=== PATIENT | female | born 1940 | race Caucasian/White ===

== ENCOUNTER 2022-02-25 08:26 | Observation (INO) | payer MEDICARE, OTHER ==
[2022-02-25] MEDS ORDERED: ANTIVERT 25 MG PO ONE (09:01)
[2022-02-25] MEDS ORDERED: Valium 5 MG PO ONE (09:01)
[2022-02-25] MEDS ORDERED: Valium 5 MG ONE (09:13)
[2022-02-25] MEDS ORDERED: ANTIVERT 25 MG ONE (09:13)
[2022-02-25 09:17] LABS: Absolute Neutrophil Ct (ANC) 3.07 x10^3/uL (1.4-6.9); Basophil (Absolute #) 0.03 x10^3/uL (0-0.4); Eosinophil % 1.8 % (0.00-5.0); Eosinophil (Absolute #) 0.09 x10^3/uL (0-0.5); Hematocrit 39.7 % (35-47); Hemoglobin 13.2 g/dL (12.0-16.0); Lymphocyte (Absolute #) 1.24 x10^3/uL (1.0-4.6); Lymphocytes % 25.4 % (24.0-44.0); Mean Cell Volume 92.1 fL (78-100); Mean Corpuscular Hemoglobin 30.6 pg (26-32); Mean Corpuscular Hgb Concent. 33.2 g/dL (32-36); Mean Platelet Volume 11.1 fL (7.5-11.0); Monocyte (Absolute #) 0.44 x10^3/uL (0.0-1.3); Neutrophil % 62.8 % (36.0-66.0); Platelet Count 229 x10^3/uL (150-450); Red Blood Count 4.31 x10^6/uL (4.1-5.4); Red Cell Distribution Width 12.7 % (11.5-14.0); White Blood Count 4.9 x10^3/uL (4.0-10.5)
[2022-02-25 09:30] LABS: ALKALINE PHOSPHATASE 98 U/L (38-126); ANION GAP 6.2 MEQ/L (5-15); BLOOD UREA NITROGEN 13 mg/dL (7-17); CHLORIDE 106 mmol/L (98-107); Calcium 8.7 mg/dL (8.4-10.2); Carbon Dioxide 30 mmol/L (22-30); Creatinine 1 0.59 mg/dL (0.52-1.04); EST GLOMERULAR FILTRATION RATE > 60.0 ML/MIN; Glucose 112 mg/dL (74-106); MAGNESIUM 2.1 mg/dL (1.6-2.3); Potassium 3.7 mmol/L (3.5-5.1); SGOT/AST 23 U/L (14-36); SGPT/ALT 16 U/L (0-35); SODIUM 138 mmol/L (137-145); Total Protein 6.6 g/dL (6.3-8.2)
[2022-02-25] MEDS: Sodium Chloride 0.9% 1000 ML 1,000 ML IV SCH ×2 (09:31→16:30)
--- NOTE | 2022-02-25 09:49 | XRAY ---
Indication: Vertigo and nausea. Low blood pressure. Multiple contiguous axial images obtained through the head without contrast. Comparison: None Age-appropriate global atrophy and minimal periventricular degenerative micro-ischemia. No acute intracranial hemorrhage, abnormal extra-axial fluid collection, or mass effect. Fourth ventricle is midline without hydrocephalus. Bony calvarium intact. Paranasal sinuses and mastoid air cells are clear. Impression: Nonacute senile brain.
--- NOTE | 2022-02-25 10:38 | ERPHSYRPT ---
- History of Present Illness Time Seen by Provider: 02/25/22 08:45 Source: patient Exam Limitations: no limitations Patient Subjective Stated Complaint: Patient stated that she woke up with nausea no vomitting at this time. Patient states that she has a history of vertigo and that it worse this morning and it is the worse that it has ever been. Patient states that she just had her blood pressure medication changed about 2 weeks ago and she has been having issues with her vertitgo ever since. Patient states that yesterday morning she was feeling off. States that she felt like her mouth muscles were weak. Patient also stated that she received a steroid injection last week as well. Triage Nursing Assessment: Patient is A&ox3. Nauseated and diaphoretic.. Patient lungs sounds clear throughout, bowel sounds active x4. Heart rate bradycardic in the 40's. Patient heart sounds regular. No pain at this time. Patient does have some general weakness. No other deficits noted at this time. Physician History: Patient is a 81-year-old white female who presents with a complaint of awakening with nausea and vertigo which is extremely bad. She has a history of episodes of vertigo in the past. She started yesterday and as the day wore on she was better and by last night she was fine she awoke at 1:30 AM today and was okay about 6 AM she turned over in bed and the room began to spin and she has had sweating nausea and vomiting since. She reports that she has a chronically low heart rate but she usually is in the 50s today she is primarily in the 40s. Timing/Duration: yesterday Severity: severe Modifying Factors: Improves With: movement Associated Symptoms: nausea, vomiting, diaphoresis Allergies/Adverse Reactions: ciprofloxacin Allergy (Intermediate, Verified 02/25/22 09:00) Swelling of Eyelids Sulfa (Sulfonamide Antibiotics) Allergy (Mild, Verified 02/25/22 09:00) Rash diphenhydramine [From Benadryl] Adverse Reaction (Mild, Verified 02/25/22 09:00) Home Medications: Cetirizine HCl [Zyrtec] 10 mg PO DAILY 02/25/22 [History] Lamotrigine 100 mg [lamICTAL 100MG TABLET] 150 mg PO BID 02/25/22 [History] Levothyroxine Sodium 100 Mcg [Synthroid 100 Mcg] 100 mcg PO DAILY 02/25/22 [History] Montelukast Sodium 10 mg [Singulair 10 MG] 10 mg PO DAILY 02/25/22 [History] Telmisartan 80 mg [Micardis 80 MG Tablet] 80 mg PO DAILY 02/25/22 [History] Hx Tetanus, Diphtheria Vaccination/Date Given: (Unknown) Hx Influenza Vaccination/Date Given: Yes Hx Pneumococcal Vaccination/Date Given: Yes (unknown) Travel Risk - International Travel Have you traveled outside of the country in past 3 weeks: No - Coronavirus Screening Are you exhibiting any of the following symptoms?: No Close contact with a COVID-19 positive Pt in past 14-21 Days: No - Vaccine Status Have you recieved a Covid-19 vaccination: Yes 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: [employer] - Vaccination Dates Date of 2cond Vaccination (if applicable): 06/04/2020 - Review of Systems Constitutional: No Fever, No Chills Eyes: No Symptoms Ears, Nose, & Throat: No Symptoms Respiratory: No Cough, No Dyspnea Cardiac: No Chest Pain, No Edema, No Syncope Abdominal/Gastrointestinal: No Abdominal Pain, No Nausea, No Vomiting, No Diarrhea Genitourinary Symptoms: No Dysuria Musculoskeletal: No Back Pain, No Neck Pain Skin: No Rash Neurological: Dizziness, No Focal Weakness, No Sensory Changes Psychological: No Symptoms Endocrine: No Symptoms All Other Systems: Reviewed and Negative - Past Medical History Pertinent Past Medical History: Yes Neurological History: Seizures, Other ENT History: No Pertinent History Cardiac History: Hypertension Respiratory History: Bronchitis, Pneumonia Endocrine Medical History: Hypothyroidism Musculoskeletal History: Osteoarthritis GI Medical History: No Pertinent History History: No Pertinent History Psycho-Social History: No Pertinent History Female Reproductive Disorders: No Pertinent History Other Medical History: PMHX INCLUDES ENCEPHALITIS, LEFT KNEE REPLACEMENT 2000, RIGHT CTR 2014, HYSTERECTOMY, FX BRENDEN. ANKLES, PLANTAR FASCITIS AND TENDMONITIS RIGHT ANKLE. STATES SHE HAD WORN A BRACE ON RIGHT FOOT/ANKLE FOR YEARS BUT RECENTLY STOPPED WEARING IT FELT LIKE IT WAS AFFECTING CIRCULATION - Past Surgical History Past Surgical History: Yes Neuro Surgical History: No Pertinent History Cardiac: Cardiac Catheterization Respiratory: No Pertinent History Gastrointestinal: No Pertinent History Genitourinary: No Pertinent History Musculoskeletal: Joint Replacement Female Surgical History: Hysterectomy Other Surgical History: Left Knee, Right Wrist - Social History Smoking Status: Never smoker Exposure to second hand smoke: No Drug Use: none Patient Lives Alone: Yes - Nursing Vital Signs Nursing Vital Signs: Initial Vital Signs Temperature 97.8 F 02/25/22 08:37 Pulse Rate 49 L 02/25/22 08:37 Respiratory Rate 16 02/25/22 08:37 O2 Sat by Pulse Oximetry 96 02/25/22 08:37 Pain Scale Pain Intensity 0 - Physical Exam General Appearance: mild distress Eye Exam: PERRL/EOMI, eyes nml inspection, other (Nystagmus is noted with change in head position especially when turning to the left.) Ears, Nose, Throat Exam: normal ENT inspection, TMs normal Neck Exam: normal inspection, non-tender, supple Respiratory Exam: normal breath sounds, lungs clear, No chest tenderness Cardiovascular Exam: regular rate/rhythm, bradycardia Gastrointestinal/Abdomen Exam: soft, normal bowel sounds Back Exam: normal inspection, normal range of motion, No CVA tenderness, No vertebral tenderness Extremity Exam: normal inspection, normal range of motion, pelvis stable Neurologic Exam: alert, oriented x 3, cooperative, entry level drafter II-XII nml as tested (There was noted to be nystagmus with change in head position especially turning to the left), normal mood/affect, nml cerebellar function ([id number]) Skin Exam: normal color, warm, dry SpO2 Interpretation: normal SpO2: 97 O2 Delivery: Room Air - Course Nursing assessment & vital signs reviewed: Yes EKG Interpreted by Me: RATE (50), Sinus Stanton, NORMAL AXIS, NORMAL INTERVALS, Non-specific ST Changes - CT Exams Head CT Interpretation: Negative Ordered Tests: Active Orders 24 hr Category Date Time Status EKG-ER Only STAT Care 02/25/22 09:01 Active HEAD WITHOUT CONTRAST [CT] Stat Exams 02/25/22 09:02 Completed CBC W DIFF Stat Lab 02/25/22 09:14 Completed CMP Stat Lab 02/25/22 09:14 Completed Lactic Acid Stat Lab 02/25/22 09:14 Completed MAGNESIUM Stat Lab 02/25/22 09:14 Completed TROPONIN Q4H Lab 02/25/22 09:14 Completed TROPONIN Q4H Lab 02/25/22 13:15 Ordered TROPONIN Q4H Lab 02/25/22 17:15 Ordered TSH [TSH, 3RD Generation] Stat Lab 02/25/22 09:41 Completed UA W/RFX CULTURE Stat Lab 02/25/22 Ordered Medication Summary Generic Name Dose Route Start Last Admin Trade Name Chaz PRN Reason Stop Dose Admin Sodium Chloride 1,000 mls @ 100 mls/hr 02/25/22 09:15 02/25/22 09:31 Sodium Chloride 0.9% 1000 Ml IV 03/27/22 09:14 100 mls/hr .Q10H KATHERYN Administration Discontinued Medications Generic Name Dose Route Start Last Admin Trade Name Chaz PRN Reason Stop Dose Admin Diazepam 2.5 mg 02/25/22 09:01 02/25/22 09:38 Diazepam 5 Mg Tablet PO 02/25/22 09:02 2.5 mg STAT ONE Administration Diazepam Confirm 02/25/22 09:13 Diazepam 5 Mg Tablet Administered 02/25/22 09:14 Dose 5 mg .ROUTE .STK-MED ONE Meclizine HCl 25 mg 02/25/22 09:01 02/25/22 09:31 Meclizine Hcl 25 Mg Tablet PO 02/25/22 09:02 25 mg STAT ONE Administration Meclizine HCl Confirm 02/25/22 09:13 Meclizine Hcl 25 Mg Tablet Administered 02/25/22 09:14 Dose 25 mg .ROUTE .STK-MED ONE Lab/Rad Data: Laboratory Result Diagrams 02/25/22 09:14 02/25/22 09:14 Laboratory Results 02/25/22 02/25/22 02/25/22 Range/Units 09:41 09:14 09:14 WBC (4.0-10.5) x10^3/uL RBC (4.1-5.4) x10^6/uL Hgb (12.0-16.0) g/dL Hct (35-47) % MCV (78-100) fL MCH (26-32) pg MCHC (32-36) g/dL RDW (11.5-14.0) % Plt Count (150-450) x10^3/uL MPV (7.5-11.0) fL Gran % (36.0-66.0) % Immature Gran % (Auto) (0.00-0.4) % Nucleat RBC Rel Count (0.00-0.1) % Eos # (Auto) (0-0.5) x10^3/uL Immature Gran # (Auto) (0.00-0.03) x10^3u/L Absolute Lymphs (auto) (1.0-4.6) x10^3/uL Absolute Monos (auto) (0.0-1.3) x10^3/uL Absolute Nucleated RBC (0.00-0.01) x10^3u/L Lymphocytes % (24.0-44.0) % Monocytes % (0.0-12.0) % Eosinophils % (0.00-5.0) % Basophils % (0.0-0.4) % Absolute Granulocytes (1.4-6.9) x10^3/uL Basophils # (0-0.4) x10^3/uL Sodium 138 (137-145) mmol/L Potassium 3.7 (3.5-5.1) mmol/L Chloride 106 (98-107) mmol/L Carbon Dioxide 30 (22-30) mmol/L Anion Gap 6.2 (5-15) MEQ/L BUN 13 (7-17) mg/dL Creatinine 0.59 (0.52-1.04) mg/dL Estimated GFR > 60.0 ML/MIN Glucose 112 H (74-106) mg/dL Lactic Acid (0.4-2.0) Calcium 8.7 (8.4-10.2) mg/dL Magnesium 2.1 (1.6-2.3) mg/dL Total Bilirubin 0.80 (0.2-1.3) mg/dL AST 23 (14-36) U/L ALT 16 (0-35) U/L Alkaline Phosphatase 98 (38-126) U/L Troponin I < 0.012 (0.000-0.034) ng/mL Serum Total Protein 6.6 (6.3-8.2) g/dL Albumin 4.0 (3.5-5.0) g/dL TSH 3rd Generation 1.880 (0.47-4.68) mIU/L 02/25/22 02/25/22 Range/Units 09:14 09:14 WBC 4.9 (4.0-10.5) x10^3/uL RBC 4.31 (4.1-5.4) x10^6/uL Hgb 13.2 (12.0-16.0) g/dL Hct 39.7 (35-47) % MCV 92.1 (78-100) fL MCH 30.6 (26-32) pg MCHC 33.2 (32-36) g/dL RDW 12.7 (11.5-14.0) % Plt Count 229 (150-450) x10^3/uL MPV 11.1 H (7.5-11.0) fL Gran % 62.8 (36.0-66.0) % Immature Gran % (Auto) 0.4 (0.00-0.4) % Nucleat RBC Rel Count 0.0 (0.00-0.1) % Eos # (Auto) 0.09 (0-0.5) x10^3/uL Immature Gran # (Auto) 0.02 (0.00-0.03) x10^3u/L Absolute Lymphs (auto) 1.24 (1.0-4.6) x10^3/uL Absolute Monos (auto) 0.44 (0.0-1.3) x10^3/uL Absolute Nucleated RBC 0.00 (0.00-0.01) x10^3u/L Lymphocytes % 25.4 (24.0-44.0) % Monocytes % 9.0 (0.0-12.0) % Eosinophils % 1.8 (0.00-5.0) % Basophils % 0.6 (0.0-0.4) % Absolute Granulocytes 3.07 (1.4-6.9) x10^3/uL Basophils # 0.03 (0-0.4) x10^3/uL Sodium (137-145) mmol/L Potassium (3.5-5.1) mmol/L Chloride (98-107) mmol/L Carbon Dioxide (22-30) mmol/L Anion Gap (5-15) MEQ/L BUN (7-17) mg/dL Creatinine (0.52-1.04) mg/dL Estimated GFR ML/MIN Glucose (74-106) mg/dL Lactic Acid 1.0 (0.4-2.0) Calcium (8.4-10.2) mg/dL Magnesium (1.6-2.3) mg/dL Total Bilirubin (0.2-1.3) mg/dL AST (14-36) U/L ALT (0-35) U/L Alkaline Phosphatase (38-126) U/L Troponin I (0.000-0.034) ng/mL Serum Total Protein (6.3-8.2) g/dL Albumin (3.5-5.0) g/dL TSH 3rd Generation (0.47-4.68) mIU/L - Progress Progress: improved Discussed with DrAnastasia: Tom Will see patient in: hospital (observation) - Departure Departure Disposition: Observation Clinical Impression: Vertigo, Bradycardia Condition: Fair Critical Care Time: No Referrals: SAÚL WATERS [Primary Care Provider] - Follow up/PCP as directed
[2022-02-25] MEDS ORDERED: Sodium Chloride 0.9% 1000 ML 1,000 ML IV SCH (11:30)
[2022-02-25 11:34] LABS: Bacteria RARE /HPF (NEGATIVE); Epithelial Cells FEW /HPF (FEW); Mucus SLIGHT /HPF (NEGATIVE); RBC 0-2 /HPF (0-2)
[2022-02-25 11:38] LABS: Appearance CLEAR (CLEAR); Bilirubin NEGATIVE (NEGATIVE); Dipstick done @ ? MAIN LAB; Glucose NEGATIVE (NEGATIVE); Ketones NEGATIVE (NEGATIVE); Nitrite NEGATIVE (NEGATIVE); Protein,Urine Dip NEGATIVE (Negative); RBC TRACE-INTACT Ery/ul (0-5); Urobilinogen 0.2 mg/dL (0-1)
[2022-02-25 11:40] LABS: Urine Cultured Indicated? NO
[2022-02-25 11:57] LABS: INFLUENZA A NEGATIVE (NEGATIVE); INFLUENZA B NEGATIVE (NEGATIVE); RESPIRATORY SYNCTIAL VIRUS NEGATIVE (Negative); SARS-CoV-2 Xpert Express NEGATIVE (NEGATIVE)
[2022-02-25] MEDS: Valium 5 MG PO SCH ×2 (15:14→21:13)
[2022-02-25] MEDS: ANTIVERT 25 MG PO SCH ×2 (15:14→21:12)
[2022-02-25] MEDS: CLARITIN 10 MG PO SCH (16:28)
[2022-02-25] MEDS: Singulair 10 MG PO SCH (16:29)
[2022-02-25] MEDS: Micardis 80 MG Tablet PO SCH (16:29)
[2022-02-25] MEDS: SYNTHROID 100 MCG PO SCH (16:30)
[2022-02-25] MEDS: lamICTAL 100MG TABLET PO SCH (21:13)
[2022-02-26] MEDS: Sodium Chloride 0.9% 1000 ML 1,000 ML IV SCH ×2 (01:38→11:28)
[2022-02-26] MEDS ORDERED: TYLENOL 325 MG PO PRN (04:04)
[2022-02-26 05:13] LABS: Absolute Neutrophil Ct (ANC) 2.64 x10^3/uL (1.4-6.9); Basophil (Absolute #) 0.05 x10^3/uL (0-0.4); Eosinophil % 1.7 % (0.00-5.0); Eosinophil (Absolute #) 0.09 x10^3/uL (0-0.5); Hematocrit 38.2 % (35-47); Hemoglobin 12.2 g/dL (12.0-16.0); Lymphocyte (Absolute #) 1.93 x10^3/uL (1.0-4.6); Lymphocytes % 36.4 % (24.0-44.0); Mean Cell Volume 94.6 fL (78-100); Mean Corpuscular Hemoglobin 30.2 pg (26-32); Mean Corpuscular Hgb Concent. 31.9 g/dL (32-36); Mean Platelet Volume 11.4 fL (7.5-11.0); Monocyte (Absolute #) 0.57 x10^3/uL (0.0-1.3); Monocytes % 10.8 % (0.0-12.0); Neutrophil % 49.8 % (36.0-66.0); Platelet Count 213 x10^3/uL (150-450); Red Blood Count 4.04 x10^6/uL (4.1-5.4); Red Cell Distribution Width 12.7 % (11.5-14.0); White Blood Count 5.3 x10^3/uL (4.0-10.5)
[2022-02-26 05:48] LABS: ALBUMIN 3.4 g/dL (3.5-5.0); ALKALINE PHOSPHATASE 89 U/L (38-126); BLOOD UREA NITROGEN 16 mg/dL (7-17); CHLORIDE 107 mmol/L (98-107); Calcium 8.4 mg/dL (8.4-10.2); Carbon Dioxide 27 mmol/L (22-30); Creatinine 1 0.57 mg/dL (0.52-1.04); EST GLOMERULAR FILTRATION RATE > 60.0 ML/MIN; Glucose 91 mg/dL (74-106); Potassium 3.8 mmol/L (3.5-5.1); SGOT/AST 19 U/L (14-36); SGPT/ALT 15 U/L (0-35); SODIUM 137 mmol/L (137-145); Total Protein 5.9 g/dL (6.3-8.2)
[2022-02-26] MEDS ORDERED: APRESOLINE 20 MG/ML INJ IV PRN (07:07)
[2022-02-26] MEDS ORDERED: NON-FORMULARY ITEM (Cetirizine Hcl [Zyrtec] 10 MG Capsule) PO SCH (10:00)
[2022-02-26] MEDS: CLARITIN 10 MG PO SCH (10:09)
[2022-02-26] MEDS: ANTIVERT 25 MG PO SCH ×2 (10:09→14:51)
[2022-02-26] MEDS: lamICTAL 100MG TABLET PO SCH (10:09)
[2022-02-26] MEDS: SYNTHROID 100 MCG PO SCH (10:10)
[2022-02-26] MEDS: Singulair 10 MG PO SCH (10:10)
[2022-02-26] MEDS: Micardis 80 MG Tablet PO SCH (10:10)
[2022-02-26] MEDS: Valium 5 MG PO SCH ×2 (10:11→14:51)
--- NOTE | 2022-02-26 11:53 | PCM.SSS ---
History of Present Illness - Chief Complaint Chief Complaint: vertigo, bradycardia History of Present Illness: is a 81 year old female pt of mine from [facility] with PMHx Meniere's dz, HTN, hyperlipidemia, hyponatremia, hypothyroidism, R knee OA, sz (post-encephalitis) who was admitted through ER for dizziness and bradycardia. She has chronic vertigo but had a severe episode yesterday. Woke at 1:30 in the morning and was fine, then woke at 6 am, rolled over, and has had N since, with diaphoresis. Her BP med was changed from ARB/HCTZ to just ARB two weeks ago. HR was in the 40s in ER (pt is not on beta cyn). Her CT head in ER was nl. EKG ok except bradycardic. Vertigo is better with meclizine and valium. HOwever, she stood up in the ER and was quite dizzy so was kept for observation instead of being sent home. - Review of Systems Respiratory: Cough (chronic over the past 1 year) Cardiac: Edema (bilat LE) Musculoskeletal: Joint Pain (R knee pain, chronic), Other (hx plantar fasciitis) Medications & Allergies Home Medications: Home Medication List Cetirizine HCl [Zyrtec] 10 mg PO DAILY 02/25/22 [History Confirmed 02/25/22] Lamotrigine 100 mg [lamICTAL 100MG TABLET] 150 mg PO BID 02/25/22 [History Confirmed 02/25/22] Levothyroxine Sodium 100 Mcg [Synthroid 100 Mcg] 100 mcg PO DAILY 02/25/22 [History Confirmed 02/25/22] Montelukast Sodium 10 mg [Singulair 10 MG] 10 mg PO DAILY 02/25/22 [History Confirmed 02/25/22] Telmisartan 80 mg [Micardis 80 MG Tablet] 80 mg PO DAILY 02/25/22 [History Confirmed 02/25/22] Allergies/Adverse Reactions: Allergies Allergy/AdvReac Type Severity Reaction Status Date / Time ciprofloxacin Allergy Intermediate Swelling Verified 02/25/22 09:00 of Eyelids Sulfa (Sulfonamide Allergy Mild Rash Verified 02/25/22 09:00 Antibiotics) diphenhydramine AdvReac Mild Verified 02/25/22 09:00 [From [facility]] - Past Medical History Past Medical History: Yes Neurological History: Seizures, Other ENT History: No Pertinent History Cardiac History: Hypertension Respiratory History: Bronchitis, Pneumonia Endocrine Medical History: Hypothyroidism Musculoskelatal History: Osteoarthritis GI Medical History: No Pertinent History History: No Pertinent History Pyscho-Social History: No Pertinent History Reproductive Disorders: No Pertinent History Comment: PMHX INCLUDES ENCEPHALITIS, LEFT KNEE REPLACEMENT 2000, RIGHT CTR 2014, HYSTERECTOMY, FX BRENDEN. ANKLES, PLANTAR FASCITIS AND TENDMONITIS RIGHT ANKLE. STATES SHE HAD WORN A BRACE ON RIGHT FOOT/ANKLE FOR YEARS BUT RECENTLY STOPPED WEARING IT FELT LIKE IT WAS AFFECTING CIRCULATION - Female History Are you now?: No - Past Surgical History Past Surgical History: Yes Neuro Surgical History: No Pertinent History Cardiac History: Cardiac Catheterization Respiratory Surgery: No Pertinent History GI Surgical History: No Pertinent History Genitourinary Surgical Hx: No Pertinent History Musculskeletal Surgical Hx: Joint Replacement Female Surgical History: Hysterectomy Other Surgical History: Left Knee, Right Wrist - Social History Smoking Status: Former smoker Exposure to second hand smoke: No Alcohol: None Drug Use: none - Physical Exam Vital Signs: Vital Signs - 24 hr Temp Pulse Resp BP Pulse Ox 02/26/22 11:17 97.7 F 45 L 17 187/84 96 02/26/22 07:15 97.7 F 43 L 17 179/79 96 02/26/22 04:00 97.1 F 43 L 17 176/84 94 L 02/26/22 00:00 96.6 F 55 L 17 143/67 95 02/25/22 20:00 97.8 F 50 L 16 147/68 93 L 02/25/22 16:00 97.8 F 61 17 160/70 99 02/25/22 12:37 97.3 F 52 L 18 182/83 99 02/25/22 12:13 48 L 17 198/95 98 General Appearance: no apparent distress, obese Neurologic Exam: oriented x 3, cooperative, rehab services aide II-XII nml as tested, 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) Eye Exam: eyes nml inspection Ears, Nose, Throat Exam: moist mucous membranes Neck Exam: normal inspection Respiratory Exam: normal breath sounds, lungs clear, No crackles/rales, No rhonchi, No wheezing Cardiovascular Exam: regular rate/rhythm, normal heart sounds, No murmur Gastrointestinal/Abdomen Exam: soft, normal bowel sounds, No tenderness, No distention, No mass, No guarding, No rebound Back Exam: normal inspection, No CVA tenderness, No rash Extremity Exam: No pedal edema, No swelling Skin Exam: normal color, warm, dry, No rash Results - Labs Lab/Micro Results: Lab Results-Last 24 Hours 02/25/22 02/25/22 02/25/22 Range/Units 11:12 13:35 16:48 WBC (4.0-10.5) x10^3/uL RBC (4.1-5.4) x10^6/uL Hgb (12.0-16.0) g/dL Hct (35-47) % MCV (78-100) fL MCH (26-32) pg MCHC (32-36) g/dL RDW (11.5-14.0) % Plt Count (150-450) x10^3/uL MPV (7.5-11.0) fL Gran % (36.0-66.0) % Immature Gran % (Auto) (0.00-0.4) % Nucleat RBC Rel Count (0.00-0.1) % Eos # (Auto) (0-0.5) x10^3/uL Immature Gran # (Auto) (0.00-0.03) x10^3u/L Absolute Lymphs (auto) (1.0-4.6) x10^3/uL Absolute Monos (auto) (0.0-1.3) x10^3/uL Absolute Nucleated RBC (0.00-0.01) x10^3u/L Lymphocytes % (24.0-44.0) % Monocytes % (0.0-12.0) % Eosinophils % (0.00-5.0) % Basophils % (0.0-0.4) % Absolute Granulocytes (1.4-6.9) x10^3/uL Basophils # (0-0.4) x10^3/uL Sodium (137-145) mmol/L Potassium (3.5-5.1) mmol/L Chloride (98-107) mmol/L Carbon Dioxide (22-30) mmol/L Anion Gap (5-15) MEQ/L BUN (7-17) mg/dL Creatinine (0.52-1.04) mg/dL Estimated GFR ML/MIN Glucose (74-106) mg/dL Hemoglobin A1c 5.16 (4.5-6.0) % Calcium (8.4-10.2) mg/dL Total Bilirubin (0.2-1.3) mg/dL AST (14-36) U/L ALT (0-35) U/L Alkaline Phosphatase (38-126) U/L Troponin I < 0.012 (0.000-0.034) ng/mL Serum Total Protein (6.3-8.2) g/dL Albumin (3.5-5.0) g/dL Influenza Type A Ag NEGATIVE (NEGATIVE) Influenza Type B Ag NEGATIVE (NEGATIVE) RSV (PCR) NEGATIVE (Negative) SARS-CoV-2 (PCR) NEGATIVE (NEGATIVE) 02/25/22 02/26/22 02/26/22 Range/Units 17:40 04:30 04:30 WBC 5.3 (4.0-10.5) x10^3/uL RBC 4.04 L (4.1-5.4) x10^6/uL Hgb 12.2 (12.0-16.0) g/dL Hct 38.2 (35-47) % MCV 94.6 (78-100) fL MCH 30.2 (26-32) pg MCHC 31.9 L (32-36) g/dL RDW 12.7 (11.5-14.0) % Plt Count 213 (150-450) x10^3/uL MPV 11.4 H (7.5-11.0) fL Gran % 49.8 (36.0-66.0) % Immature Gran % (Auto) 0.4 (0.00-0.4) % Nucleat RBC Rel Count 0.0 (0.00-0.1) % Eos # (Auto) 0.09 (0-0.5) x10^3/uL Immature Gran # (Auto) 0.02 (0.00-0.03) x10^3u/L Absolute Lymphs (auto) 1.93 (1.0-4.6) x10^3/uL Absolute Monos (auto) 0.57 (0.0-1.3) x10^3/uL Absolute Nucleated RBC 0.00 (0.00-0.01) x10^3u/L Lymphocytes % 36.4 (24.0-44.0) % Monocytes % 10.8 (0.0-12.0) % Eosinophils % 1.7 (0.00-5.0) % Basophils % 0.9 (0.0-0.4) % Absolute Granulocytes 2.64 (1.4-6.9) x10^3/uL Basophils # 0.05 (0-0.4) x10^3/uL Sodium 137 (137-145) mmol/L Potassium 3.8 (3.5-5.1) mmol/L Chloride 107 (98-107) mmol/L Carbon Dioxide 27 (22-30) mmol/L Anion Gap 6.0 (5-15) MEQ/L BUN 16 (7-17) mg/dL Creatinine 0.57 (0.52-1.04) mg/dL Estimated GFR > 60.0 ML/MIN Glucose 91 (74-106) mg/dL Hemoglobin A1c (4.5-6.0) % Calcium 8.4 (8.4-10.2) mg/dL Total Bilirubin 0.90 (0.2-1.3) mg/dL AST 19 (14-36) U/L ALT 15 (0-35) U/L Alkaline Phosphatase 89 (38-126) U/L Troponin I < 0.012 (0.000-0.034) ng/mL Serum Total Protein 5.9 L (6.3-8.2) g/dL Albumin 3.4 L (3.5-5.0) g/dL Influenza Type A Ag (NEGATIVE) Influenza Type B Ag (NEGATIVE) RSV (PCR) (Negative) SARS-CoV-2 (PCR) (NEGATIVE) - Radiology Impressions Radiology Exams & Impressions: Radiology Procedures Category Date Time Status CHEST WITH CONTRAST [CT] Routine Exams 02/26/22 11:47 Ordered HEAD WITHOUT CONTRAST [CT] Stat Exams 02/25/22 09:02 Completed Assessment/Plan (1) Vertigo Current Visit: Yes Status: Acute Assessment & Plan: Pt doing well with PT today - if OK with cardiology, will discharge to home this afternoon. Code(s): R42 - DIZZINESS AND GIDDINESS (2) Bradycardia Current Visit: Yes Status: Acute Assessment & Plan: not on beta cyn. Cardiology consult. Code(s): R00.1 - BRADYCARDIA, UNSPECIFIED Hospital Summary - Hospital Course Hospital Course: Pt is 81 yo female admitted for dizziness and bradycardia. Likely BPPV; evaluated by PT and did well on cane but they recommend a walker. Her HR is 40s-50s overnight and during the day - will consult cardiology today. If pt continues feeling well, would like to d/c her to home; use the walker as needed. Meclizine prn. - Vitals & Intake/Output Vital Signs: Vital Signs Temperature 97.7 F 02/26/22 11:17 Pulse Rate 45 L 02/26/22 11:17 Respiratory Rate 17 02/26/22 11:17 Blood Pressure 187/84 02/26/22 11:17 O2 Sat by Pulse Oximetry 96 02/26/22 11:17 Intake & Output: Intake & Output 02/23/22 02/24/22 02/25/22 02/26/22 11:59 11:59 11:59 11:59 Intake Total 2693 Balance 2693 Weight 109.7 kg 109.7 kg - Lab Result Diagrams: 02/26/22 04:30 02/26/22 04:30 Lab Results-Last 24 Hrs: Lab Results-Last 24 Hours 02/25/22 02/25/22 02/25/22 Range/Units 11:12 13:35 16:48 WBC (4.0-10.5) x10^3/uL RBC (4.1-5.4) x10^6/uL Hgb (12.0-16.0) g/dL Hct (35-47) % MCV (78-100) fL MCH (26-32) pg MCHC (32-36) g/dL RDW (11.5-14.0) % Plt Count (150-450) x10^3/uL MPV (7.5-11.0) fL Gran % (36.0-66.0) % Immature Gran % (Auto) (0.00-0.4) % Nucleat RBC Rel Count (0.00-0.1) % Eos # (Auto) (0-0.5) x10^3/uL Immature Gran # (Auto) (0.00-0.03) x10^3u/L Absolute Lymphs (auto) (1.0-4.6) x10^3/uL Absolute Monos (auto) (0.0-1.3) x10^3/uL Absolute Nucleated RBC (0.00-0.01) x10^3u/L Lymphocytes % (24.0-44.0) % Monocytes % (0.0-12.0) % Eosinophils % (0.00-5.0) % Basophils % (0.0-0.4) % Absolute Granulocytes (1.4-6.9) x10^3/uL Basophils # (0-0.4) x10^3/uL Sodium (137-145) mmol/L Potassium (3.5-5.1) mmol/L Chloride (98-107) mmol/L Carbon Dioxide (22-30) mmol/L Anion Gap (5-15) MEQ/L BUN (7-17) mg/dL Creatinine (0.52-1.04) mg/dL Estimated GFR ML/MIN Glucose (74-106) mg/dL Hemoglobin A1c 5.16 (4.5-6.0) % Calcium (8.4-10.2) mg/dL Total Bilirubin (0.2-1.3) mg/dL AST (14-36) U/L ALT (0-35) U/L Alkaline Phosphatase (38-126) U/L Troponin I < 0.012 (0.000-0.034) ng/mL Serum Total Protein (6.3-8.2) g/dL Albumin (3.5-5.0) g/dL Influenza Type A Ag NEGATIVE (NEGATIVE) Influenza Type B Ag NEGATIVE (NEGATIVE) RSV (PCR) NEGATIVE (Negative) SARS-CoV-2 (PCR) NEGATIVE (NEGATIVE) 02/25/22 02/26/22 02/26/22 Range/Units 17:40 04:30 04:30 WBC 5.3 (4.0-10.5) x10^3/uL RBC 4.04 L (4.1-5.4) x10^6/uL Hgb 12.2 (12.0-16.0) g/dL Hct 38.2 (35-47) % MCV 94.6 (78-100) fL MCH 30.2 (26-32) pg MCHC 31.9 L (32-36) g/dL RDW 12.7 (11.5-14.0) % Plt Count 213 (150-450) x10^3/uL MPV 11.4 H (7.5-11.0) fL Gran % 49.8 (36.0-66.0) % Immature Gran % (Auto) 0.4 (0.00-0.4) % Nucleat RBC Rel Count 0.0 (0.00-0.1) % Eos # (Auto) 0.09 (0-0.5) x10^3/uL Immature Gran # (Auto) 0.02 (0.00-0.03) x10^3u/L Absolute Lymphs (auto) 1.93 (1.0-4.6) x10^3/uL Absolute Monos (auto) 0.57 (0.0-1.3) x10^3/uL Absolute Nucleated RBC 0.00 (0.00-0.01) x10^3u/L Lymphocytes % 36.4 (24.0-44.0) % Monocytes % 10.8 (0.0-12.0) % Eosinophils % 1.7 (0.00-5.0) % Basophils % 0.9 (0.0-0.4) % Absolute Granulocytes 2.64 (1.4-6.9) x10^3/uL Basophils # 0.05 (0-0.4) x10^3/uL Sodium 137 (137-145) mmol/L Potassium 3.8 (3.5-5.1) mmol/L Chloride 107 (98-107) mmol/L Carbon Dioxide 27 (22-30) mmol/L Anion Gap 6.0 (5-15) MEQ/L BUN 16 (7-17) mg/dL Creatinine 0.57 (0.52-1.04) mg/dL Estimated GFR > 60.0 ML/MIN Glucose 91 (74-106) mg/dL Hemoglobin A1c (4.5-6.0) % Calcium 8.4 (8.4-10.2) mg/dL Total Bilirubin 0.90 (0.2-1.3) mg/dL AST 19 (14-36) U/L ALT 15 (0-35) U/L Alkaline Phosphatase 89 (38-126) U/L Troponin I < 0.012 (0.000-0.034) ng/mL Serum Total Protein 5.9 L (6.3-8.2) g/dL Albumin 3.4 L (3.5-5.0) g/dL Influenza Type A Ag (NEGATIVE) Influenza Type B Ag (NEGATIVE) RSV (PCR) (Negative) SARS-CoV-2 (PCR) (NEGATIVE) - Radiology Exams Ordered Rad Exams-Entire Visit: Radiology Procedures Category Date Time Status CHEST WITH CONTRAST [CT] Routine Exams 02/26/22 11:47 Ordered HEAD WITHOUT CONTRAST [CT] Stat Exams 02/25/22 09:02 Completed - Procedures and Test Procedures and Tests throughout Hospitalization: Therapy Orders & Screens 02/26/22 10:12 PT Eval & Treat ( Order) ONCE Reason for Eval:: EVAL FOR WALKER IF APPROPRIATE Diagnosis: vertigo, bradycardia - Discharge Disposition: Home, Self-Care Condition: Fair Prescriptions: No Action Telmisartan 80 mg [Micardis 80 MG Tablet] 80 mg PO DAILY Lamotrigine 100 mg [lamICTAL 100MG TABLET] 150 mg PO BID Montelukast Sodium 10 mg [Singulair 10 MG] 10 mg PO DAILY Levothyroxine Sodium 100 Mcg [Synthroid 100 Mcg] 100 mcg PO DAILY Cetirizine HCl [Zyrtec] 10 mg PO DAILY Follow up with: JAKE DUKES MD [CONSULTING PHYSICIAN] -
--- NOTE | 2022-02-26 17:24 | XRAY ---
Indication: Chronic cough for months. Multiple contiguous axial images obtained through the chest using 80 cc Isovue 370 contrast. Comparison: None Lungs demonstrates mild bilateral mid to lower lung subsegmental atelectasis/scarring, right greater than left. Small right lower lobe calcified granuloma. No suspicious pulmonary mass/nodule, infiltrate, or effusion. Heart not enlarged. Aorta is minimally arteriosclerotic without aneurysm/dissection. Small right hilar calcified nodes. No pathologic mediastinal/hilar lymphadenopathy. Small hiatal hernia. Bony thorax intact with mild osteopenia and mild/moderate degenerative changes throughout the spine. Limited upper abdomen demonstrates tiny hepatic/splenic calcified granulomas. Impression: 1. Bilateral subsegmental atelectasis/scarring, small hiatal hernia, chronic bony findings, and old granulomatous disease. 2. Remaining CT chest with contrast exam is negative.
[2022-02-26] MEDS ORDERED: ATROPINE SULFATE 1MG IV PRN (18:55)
[2022-02-26 19:49] VITALS: BP 174/74; PULSE 47; O2SAT 96
--- NOTE | 2022-02-27 08:27 | CONS ---
CONSULT DATE: 02/26/2022 REASON FOR CONSULT: Dizziness and bradycardia. HISTORY: Cielo Franco is a 81-year-old woman who presented to the emergency department yesterday with progressive fatigue, dizziness and bradycardia. She has a long standing history of vertigo and she previously had ENT evaluation. She has been on chronic meclizine. She reports that she has had multiple episodes of vertigo but a few episodes of lightheadedness today. On presentation to the emergency department, her heart rate was in the 40's sinus bradycardia with ECG demonstrating significant first degree AV block and sinus bradycardia. Cardiac work up including cardiac enzymes is negative. She is on supplemental thyroid medication and her TSH was checked today which is normal. All other lab work is otherwise unremarkable. She underwent a CT scan today. When she was standing up when she was getting up from the CT scanner bed, she became very dizzy. She does report that this is more spinning in nature and vertiginous similar to previous dizziness. She also reports that she was quite fatigued and having very low energy and not feeling like getting out of bed for the past several days. Heart rate has dropped as low as 37 on telemetry sinus bradycardia and she is persistently in the 40's currently. She is not on any AV srikanth blocking agents and no other medications that can explain her significant bradycardia. REVIEW OF SYSTEMS: Fourteen system review performed. Pertinent positives noted in H&P otherwise negative. PAST MEDICAL HISTORY: Vertigo. Hypertension. Hypothyroidism. SOCIAL HISTORY: Reviewed and unremarkable. FAMILY HISTORY: Reviewed and unremarkable. ALLERGIES: SULFA. CIPROFLOXACIN. DIPHENHYDRAMINE. MEDICATIONS: Medications reviewed with the nurse during tele-cardiology consultation, see EMR for full details. PHYSICAL EXAMINATION: Vital signs reviewed. Heart rate is ranging from 37 to 60 sinus bradycardia on telemetry. Otherwise physical exam deferred as this is a tele-cardiology consultation. LAB DATA AND TESTS: Laboratory data reviewed. Of note chemistry panel is unremarkable except for mildly elevated glucose of 112. Cardiac enzymes are negative. TSH is normal. EKG personally reviewed demonstrated sinus bradycardia with heart rate of 50 with first degree AV block with HI interval of 249 milliseconds otherwise QRS duration is normal. QRS duration is 102 in milliseconds. QT interval is normal. Head CT demonstrates no acute intracranial findings. IMPRESSION: 1) Symptomatic sinus bradycardia with no discernable reversible cause. TSH is normal. She is not on any AV srikanth agent. 2) Hypertension. She is significantly hypertensive, this may be a reflex response to significant bradycardia. Head CT is negative for any intracranial process. RECOMMENDATIONS: As she is continuing to have significant symptoms of fatigue as well as dizziness which may be attributed to vertigo but cannot be excluded due to her bradycardia. I would recommend transfer for permanent pacemaker placement. I have contacted the transfer center at [facility] who will coordinate transfer accordingly. In the interim, if she becomes more symptomatic or with worsening bradycardia you can give atropine 0.5 mg IV and initiate dopamine or isoproterenol drips as necessary.
== END 2022-02-26 21:10 | disposition home or self-care (01) ==
LOC: ED 08:26 → MED SURG 12:22
PROVIDERS: ADMIT Family Medicine; ATTEND Family Medicine
DX: R42 Dizziness and giddiness (principal); R00.1 Bradycardia, unspecified; I10 Essential (primary) hypertension; E03.9 Hypothyroidism, unspecified; E78.5 Hyperlipidemia, unspecified; E87.1 Hypo-osmolality and hyponatremia; Z79.899 Other long term (current) drug therapy; Z20.828 Contact with and (suspected) exposure to other viral communicable diseases
CPT/HCPCS: 0241U; 36000; 36415; 70450; 71260; 80053; 81015; 83036; 83605; 83735; 84443; 84484; 85025; 93005; 96360; 96361; 97161; 99285; 93268; Q3014; A9270-GY; G0378

== ENCOUNTER 2022-07-04 17:46 | Emergency (ER) | payer MEDICARE, OTHER ==
[2022-07-04 17:58] VITALS: PULSE 60
--- NOTE | 2022-07-04 18:27 | ERPHSYRPT ---
- History of Present Illness Source: patient Exam Limitations: no limitations Patient Subjective Stated Complaint: pt here for palpitations today, she had a pacemaker placed in feb 2022. denies any pain but states at times her hands shake .no cough, some sob Triage Nursing Assessment: pt alert, resp easy at rest, sob with excertion, skin w/d/p, chest clear,no edema noted Timing/Duration: yesterday Activities at Onset: none Nitro Today/Relief: no nitro taken today Aspirin Treatment Today: no aspirin today Associated Symptoms: shortness of breath, malaise, weakness Hx Tetanus, Diphtheria Vaccination/Date Given: (Unknown) Hx Influenza Vaccination/Date Given: Yes Hx Pneumococcal Vaccination/Date Given: Yes (unknown) Immunizations Up to Date: Yes <PAULINO NGUYEN - Last Filed: 07/04/22 18:51> <KIMMIE HERNANDEZ - Last Filed: 07/06/22 16:17> - History of Present Illness Time Seen by Provider: 07/04/22 18:05 Physician History: Patient is an 82-year-old female who presents with complaints of palpitations. She was hospitalized at [facility] in February of last year after she was admitted with vertigo and bradycardia she had a pacemaker placed. After the pacemaker was placed she had an episode of atrial fibrillation she was treated with medicines which were not successful in converting her and she underwent a cardioversion instead. She feels like she had an episode of atrial fibs yesterday. She had difficulty while with her friend expressing herself could not find the right words. She also had tremors and shortness of breath.Patient is on Xarelto (PAULINO NGUYEN) Allergies/Adverse Reactions: ciprofloxacin Allergy (Intermediate, Verified 07/04/22 17:51) Swelling of Eyelids Sulfa (Sulfonamide Antibiotics) Allergy (Mild, Verified 07/04/22 17:51) Rash diphenhydramine [From Benadryl] Adverse Reaction (Mild, Verified 07/04/22 17:51) Home Medications: Cetirizine HCl [Zyrtec] 10 mg PO DAILY 02/25/22 [History] Lamotrigine 100 mg [lamICTAL 100MG TABLET] 150 mg PO BID 02/25/22 [History] Levothyroxine Sodium 100 Mcg [Synthroid 100 Mcg] 100 mcg PO DAILY 02/25/22 [History] Montelukast Sodium 10 mg [Singulair 10 MG] 10 mg PO DAILY 02/25/22 [History] Telmisartan 80 mg [Micardis 80 MG Tablet] 80 mg PO DAILY 02/25/22 [History] Amiodarone HCl 200 mg [Cordarone 200 MG] 200 mg PO DAILY 07/04/22 [History] Rivaroxaban [Xarelto] 2.5 mg PO DAILY 07/04/22 [History] Travel Risk - International Travel Have you traveled outside of the country in past 3 weeks: No - Coronavirus Screening Are you exhibiting any of the following symptoms?: No Close contact with a COVID-19 positive Pt in past 14-21 Days: No - Vaccine Status Have you recieved a Covid-19 vaccination: Yes [employer]: [email or web address] - Vaccination Dates Date of 2cond Vaccination (if applicable): 06/04/2020 <PAULINO NGUYEN - Last Filed: 07/04/22 18:51> - Review of Systems Constitutional: Weakness Eyes: No Symptoms Ears, Nose, & Throat: No Symptoms Respiratory: Dyspnea, Dyspnea on Exertion (CORONA) Cardiac: Palpitations, No Chest Pain, No Edema, No Syncope Abdominal/Gastrointestinal: No Abdominal Pain, No Nausea, No Vomiting, No Diarrhea Musculoskeletal: No Back Pain, No Neck Pain Skin: No Rash Neurological: Speech Changes, Tremors Psychological: No Symptoms Endocrine: No Symptoms All Other Systems: Reviewed and Negative <PAULINO NGUYEN - Last Filed: 07/04/22 18:51> - Past Medical History Pertinent Past Medical History: Yes Neurological History: Migraines ENT History: No Pertinent History Cardiac History: Arrhythmia, Coronary Artery Disease, Other Respiratory History: No Pertinent History Endocrine Medical History: No Pertinent History Musculoskeletal History: Osteoarthritis GI Medical History: No Pertinent History History: No Pertinent History Psycho-Social History: No Pertinent History Female Reproductive Disorders: No Pertinent History Other Medical History: 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 - Past Surgical History Past Surgical History: Yes Neuro Surgical History: No Pertinent History Cardiac: Cardiac Catheterization, Pacemaker Respiratory: No Pertinent History Gastrointestinal: No Pertinent History Genitourinary: No Pertinent History Musculoskeletal: Joint Replacement Female Surgical History: Hysterectomy Other Surgical History: Left Knee, Right Wrist - Social History Smoking Status: Never smoker Exposure to second hand smoke: No Drug Use: none Patient Lives Alone: Yes <PAULINO NGUYEN - Last Filed: 07/04/22 18:51> - Physical Exam General Appearance: mild distress, alert Eye Exam: PERRL/EOMI, eyes nml inspection Ears, Nose, Throat Exam: normal ENT inspection, moist mucous membranes Neck Exam: normal inspection, non-tender, supple Respiratory Exam: normal breath sounds, lungs clear, No respiratory distress Cardiovascular Exam: regular rate/rhythm, normal heart sounds, No edema Gastrointestinal/Abdomen Exam: soft, No tenderness, No mass Back Exam: normal inspection, No CVA tenderness, No vertebral tenderness Extremity Exam: normal inspection, normal range of motion Neurologic Exam: alert, oriented x 3, cooperative, normal mood/affect, nml cerebellar function, sensation nml, No motor deficits Skin Exam: normal color, warm, dry Lymphatic Exam: No adenopathy SpO2 Interpretation: normal SpO2: 95 O2 Delivery: Room Air <BRITTANYNONIPAULINO - Last Filed: 07/04/22 18:51> - Nursing Vital Signs Nursing Vital Signs: Initial Vital Signs Temperature 97.0 F 07/04/22 17:57 Pulse Rate 60 07/04/22 17:57 Respiratory Rate 18 07/04/22 17:57 Blood Pressure 162/85 07/04/22 17:57 O2 Sat by Pulse Oximetry 95 07/04/22 17:57 Pain Scale Pain Intensity 0 - Course Nursing assessment & vital signs reviewed: Yes EKG Interpreted by Me: RATE (60, atrial paced), NORMAL AXIS, NORMAL INTERVALS, NORMAL QRS, NORMAL ST-T - Radiology Exams Chest X-ray Interpretation: Reviewed by me, Negative <KIMMIE HERNANDEZ - Last Filed: 07/06/22 16:17> Ordered Tests: Medication Summary Discontinued Medications Generic Name Dose Route Start Last Admin Trade Name Freq PRN Reason Stop Dose Admin Sodium Chloride 500 mls @ 50 mls/hr 07/04/22 19:00 07/04/22 19:56 Sodium Chloride 0.9% 500 Ml IV 08/03/22 18:59 50 mls/hr .Q10H KATHERYN Administration Sodium Chloride Confirm 07/04/22 19:52 Sodium Chloride 0.9% 1000 Ml Administered 07/04/22 19:53 Dose 1,000 mls @ ud .ROUTE .STK-MED ONE Sodium Chloride Confirm 07/04/22 19:55 Sodium Chloride 0.9% 500 Ml Administered 07/04/22 19:56 Dose 500 mls @ ud IV .STK-MED ONE Lab/Rad Data: Laboratory Result Diagrams 07/04/22 18:45 07/04/22 18:45 Laboratory Results 07/04/22 07/04/22 07/04/22 Range/Units 21:30 18:56 18:55 WBC (4.0-10.5) x10^3/uL RBC (4.1-5.4) x10^6/uL Hgb (12.0-16.0) g/dL Hct (35-47) % MCV (78-100) fL MCH (26-32) pg MCHC (32-36) g/dL RDW (11.5-14.0) % Plt Count (150-450) x10^3/uL MPV (7.5-11.0) fL Gran % (36.0-66.0) % Immature Gran % (Auto) (0.00-0.4) % Nucleat RBC Rel Count (0.00-0.1) % Eos # (Auto) (0-0.5) x10^3/uL Immature Gran # (Auto) (0.00-0.03) x10^3u/L Absolute Lymphs (auto) (1.0-4.6) x10^3/uL Absolute Monos (auto) (0.0-1.3) x10^3/uL Absolute Nucleated RBC (0.00-0.01) x10^3u/L Lymphocytes % (24.0-44.0) % Monocytes % (0.0-12.0) % Eosinophils % (0.00-5.0) % Basophils % (0.0-0.4) % Absolute Granulocytes (1.4-6.9) x10^3/uL Basophils # (0-0.4) x10^3/uL PT (9.4-12.5) SECONDS INR (0.8-3.0) APTT (25.1-36.5) SECONDS D-Dimer (0.0-0.50) mg/L Sodium (137-145) mmol/L Potassium (3.5-5.1) mmol/L Chloride (98-107) mmol/L Carbon Dioxide (22-30) mmol/L Anion Gap (5-15) MEQ/L BUN (7-17) mg/dL Creatinine (0.52-1.04) mg/dL Estimated GFR ML/MIN Glucose (74-106) mg/dL Lactic Acid 0.9 (0.4-2.0) Calcium (8.4-10.2) mg/dL Magnesium (1.6-2.3) mg/dL Total Bilirubin (0.2-1.3) mg/dL AST (14-36) U/L ALT (0-35) U/L Alkaline Phosphatase (38-126) U/L Troponin I (0.000-0.034) ng/mL NT-Pro-B Natriuret Pep (<300) pg/mL Serum Total Protein (6.3-8.2) g/dL Albumin (3.5-5.0) g/dL TSH 3rd Generation (0.47-4.68) mIU/L Urine Color Yellow (Yellow) Urine Appearance Clear (Clear) Urine pH 6.0 (4.6-8.0) Ur Specific [place] 1.010 (1.005-1.030) Urine Protein Negative (Negative) Urine Glucose (UA) Negative (Negative) mg/dL Urine Ketones Negative (Negative) Urine Blood Negative (Negative) Urine Nitrite Negative (Negative) Urine Bilirubin Negative (Negative) Urine Urobilinogen 0.2 (0.2) mg/dL Ur Leukocyte Esterase Moderate A (Negative) U Hyaline Cast (Auto) NONE SEEN (0-2) /LPF Urine Microscopic RBC 0-2 (0-5) /HPF Urine Microscopic WBC 11-20 A (0-5) /HPF Ur Epithelial Cells None Seen (None Seen) /HPF Urine Bacteria None Seen (None Seen) /HPF Urine Culture Reflexed YES (NO) Influenza Type A Ag NEGATIVE (NEGATIVE) Influenza Type B Ag NEGATIVE (NEGATIVE) RSV (PCR) NEGATIVE (Negative) SARS-CoV-2 (PCR) NEGATIVE (NEGATIVE) 07/04/22 07/04/22 07/04/22 Range/Units 18:45 18:45 18:45 WBC (4.0-10.5) x10^3/uL RBC (4.1-5.4) x10^6/uL Hgb (12.0-16.0) g/dL Hct (35-47) % MCV (78-100) fL MCH (26-32) pg MCHC (32-36) g/dL RDW (11.5-14.0) % Plt Count (150-450) x10^3/uL MPV (7.5-11.0) fL Gran % (36.0-66.0) % Immature Gran % (Auto) (0.00-0.4) % Nucleat RBC Rel Count (0.00-0.1) % Eos # (Auto) (0-0.5) x10^3/uL Immature Gran # (Auto) (0.00-0.03) x10^3u/L Absolute Lymphs (auto) (1.0-4.6) x10^3/uL Absolute Monos (auto) (0.0-1.3) x10^3/uL Absolute Nucleated RBC (0.00-0.01) x10^3u/L Lymphocytes % (24.0-44.0) % Monocytes % (0.0-12.0) % Eosinophils % (0.00-5.0) % Basophils % (0.0-0.4) % Absolute Granulocytes (1.4-6.9) x10^3/uL Basophils # (0-0.4) x10^3/uL PT 17.2 H (9.4-12.5) SECONDS INR 1.64 (0.8-3.0) APTT 38.8 H (25.1-36.5) SECONDS D-Dimer 0.28 (0.0-0.50) mg/L Sodium (137-145) mmol/L Potassium (3.5-5.1) mmol/L Chloride (98-107) mmol/L Carbon Dioxide (22-30) mmol/L Anion Gap (5-15) MEQ/L BUN (7-17) mg/dL Creatinine (0.52-1.04) mg/dL Estimated GFR ML/MIN Glucose (74-106) mg/dL Lactic Acid (0.4-2.0) Calcium (8.4-10.2) mg/dL Magnesium (1.6-2.3) mg/dL Total Bilirubin (0.2-1.3) mg/dL AST (14-36) U/L ALT (0-35) U/L Alkaline Phosphatase (38-126) U/L Troponin I < 0.012 (0.000-0.034) ng/mL NT-Pro-B Natriuret Pep (<300) pg/mL Serum Total Protein (6.3-8.2) g/dL Albumin (3.5-5.0) g/dL TSH 3rd Generation 1.600 (0.47-4.68) mIU/L Urine Color (Yellow) Urine Appearance (Clear) Urine pH (4.6-8.0) Ur Specific [place] (1.005-1.030) Urine Protein (Negative) Urine Glucose (UA) (Negative) mg/dL Urine Ketones (Negative) Urine Blood (Negative) Urine Nitrite (Negative) Urine Bilirubin (Negative) Urine Urobilinogen (0.2) mg/dL Ur Leukocyte Esterase (Negative) U Hyaline Cast (Auto) (0-2) /LPF Urine Microscopic RBC (0-5) /HPF Urine Microscopic WBC (0-5) /HPF Ur Epithelial Cells (None Seen) /HPF Urine Bacteria (None Seen) /HPF Urine Culture Reflexed (NO) Influenza Type A Ag (NEGATIVE) Influenza Type B Ag (NEGATIVE) RSV (PCR) (Negative) SARS-CoV-2 (PCR) (NEGATIVE) 07/04/22 07/04/22 Range/Units 18:45 18:45 WBC 6.7 (4.0-10.5) x10^3/uL RBC 4.64 (4.1-5.4) x10^6/uL Hgb 14.3 (12.0-16.0) g/dL Hct 43.4 (35-47) % MCV 93.5 (78-100) fL MCH 30.8 (26-32) pg MCHC 32.9 (32-36) g/dL RDW 12.6 (11.5-14.0) % Plt Count 259 (150-450) x10^3/uL MPV 11.2 H (7.5-11.0) fL Gran % 56.9 (36.0-66.0) % Immature Gran % (Auto) 0.7 H (0.00-0.4) % Nucleat RBC Rel Count 0.0 (0.00-0.1) % Eos # (Auto) 0.18 (0-0.5) x10^3/uL Immature Gran # (Auto) 0.05 H (0.00-0.03) x10^3u/L Absolute Lymphs (auto) 1.92 (1.0-4.6) x10^3/uL Absolute Monos (auto) 0.67 (0.0-1.3) x10^3/uL Absolute Nucleated RBC 0.00 (0.00-0.01) x10^3u/L Lymphocytes % 28.8 (24.0-44.0) % Monocytes % 10.0 (0.0-12.0) % Eosinophils % 2.7 (0.00-5.0) % Basophils % 0.9 (0.0-0.4) % Absolute Granulocytes 3.79 (1.4-6.9) x10^3/uL Basophils # 0.06 (0-0.4) x10^3/uL PT (9.4-12.5) SECONDS INR (0.8-3.0) APTT (25.1-36.5) SECONDS D-Dimer (0.0-0.50) mg/L Sodium 134 L (137-145) mmol/L Potassium 3.9 (3.5-5.1) mmol/L Chloride 98 (98-107) mmol/L Carbon Dioxide 29 (22-30) mmol/L Anion Gap 9.9 (5-15) MEQ/L BUN 22 H (7-17) mg/dL Creatinine 1.09 H (0.52-1.04) mg/dL Estimated GFR 51.3 ML/MIN Glucose 94 (74-106) mg/dL Lactic Acid (0.4-2.0) Calcium 8.5 (8.4-10.2) mg/dL Magnesium 2.1 (1.6-2.3) mg/dL Total Bilirubin 0.60 (0.2-1.3) mg/dL AST 26 (14-36) U/L ALT 17 (0-35) U/L Alkaline Phosphatase 94 (38-126) U/L Troponin I (0.000-0.034) ng/mL NT-Pro-B Natriuret Pep 204 (<300) pg/mL Serum Total Protein 6.5 (6.3-8.2) g/dL Albumin 3.9 (3.5-5.0) g/dL TSH 3rd Generation (0.47-4.68) mIU/L Urine Color (Yellow) Urine Appearance (Clear) Urine pH (4.6-8.0) Ur Specific [place] (1.005-1.030) Urine Protein (Negative) Urine Glucose (UA) (Negative) mg/dL Urine Ketones (Negative) Urine Blood (Negative) Urine Nitrite (Negative) Urine Bilirubin (Negative) Urine Urobilinogen (0.2) mg/dL Ur Leukocyte Esterase (Negative) U Hyaline Cast (Auto) (0-2) /LPF Urine Microscopic RBC (0-5) /HPF Urine Microscopic WBC (0-5) /HPF Ur Epithelial Cells (None Seen) /HPF Urine Bacteria (None Seen) /HPF Urine Culture Reflexed (NO) Influenza Type A Ag (NEGATIVE) Influenza Type B Ag (NEGATIVE) RSV (PCR) (Negative) SARS-CoV-2 (PCR) (NEGATIVE) - Progress Progress: improved Air Movement: good Discussed with : Other (Telehospitalist) Counseled pt/family regarding: lab results (gain in), diagnosis, need for follow-up, rad results <KIMMIE HERNANDEZ - Last Filed: 07/06/22 16:17> - Progress Progress Note: Discussed case w/ telehospitalist after all testing completed and decision was made to d/c patient home w/ close PCP f/u. The decision was discussed w/ patient who was agreeable to the plan. (KIMMIE HERNANDEZ) Medical Desision Making - Discussion of managment Care discussed with:: hospitalist Reviewed:: Test results Agreed on:: Treatment plan Will see patient: In office - Diagnostic Testing Diagnostic test were ordered, analyzed, and reviewed by me: Yes Radiological Interpretation: Reviewed by me - Risk of complications Low Risk: Low risk of morbidity from additional dx testing or treatment <KIMMIE HERNANDEZ - Last Filed: 07/06/22 16:17> - Departure Departure Disposition: Home Critical Care Time: No <PAULINO NGUYEN - Last Filed: 07/04/22 18:51> - Departure Departure Disposition: Home <KIMMIE HERNANDEZ - Last Filed: 07/06/22 16:17> - Departure Clinical Impression: Palpitations Condition: Stable Referrals: SAÚL WATERS [Primary Care Provider] - Follow up/PCP as directed Instructions: Palpitations (DC)
[2022-07-04 19:00] LABS: Absolute Neutrophil Ct (ANC) 3.79 x10^3/uL (1.4-6.9); BASOPHIL % 0.9 % (0.0-0.4); Basophil (Absolute #) 0.06 x10^3/uL (0-0.4); Eosinophil % 2.7 % (0.00-5.0); Eosinophil (Absolute #) 0.18 x10^3/uL (0-0.5); Hematocrit 43.4 % (35-47); Hemoglobin 14.3 g/dL (12.0-16.0); IMMATURE GRAN # 0.05 x10^3u/L (0.00-0.03); IMMATURE GRAN % 0.7 % (0.00-0.4); Lymphocyte (Absolute #) 1.92 x10^3/uL (1.0-4.6); Lymphocytes % 28.8 % (24.0-44.0); Mean Cell Volume 93.5 fL (78-100); Mean Corpuscular Hemoglobin 30.8 pg (26-32); Mean Corpuscular Hgb Concent. 32.9 g/dL (32-36); Mean Platelet Volume 11.2 fL (7.5-11.0); Monocyte (Absolute #) 0.67 x10^3/uL (0.0-1.3); Neutrophil % 56.9 % (36.0-66.0); Platelet Count 259 x10^3/uL (150-450); Red Blood Count 4.64 x10^6/uL (4.1-5.4); Red Cell Distribution Width 12.6 % (11.5-14.0); White Blood Count 6.7 x10^3/uL (4.0-10.5)
[2022-07-04] MEDS ORDERED: Sodium Chloride 0.9% 500 ML 500 ML IV SCH (19:00)
[2022-07-04 19:15] LABS: Appearance Clear (Clear); Bacteria None Seen /HPF (None Seen); Bilirubin Negative (Negative); Blood Negative (Negative); Epithelial Cells None Seen /HPF (None Seen); Glucose, Urine Negative (Negative); Hyaline Casts NONE SEEN /LPF (0-2); Ketones Negative (Negative); Leukocyte Esterase Moderate (Negative); Nitrite Negative (Negative); Protein,Urine Dip Negative (Negative); RBC 0-2 /HPF (0-5); Urobilinogen 0.2 mg/dL (0.2)
[2022-07-04 19:16] LABS: ADD URINE CULTURE? YES (NO)
[2022-07-04 19:19] LABS: D-DIMER QUANTITATIVE 0.28 mg/L (0.0-0.50); INR 1.64 (0.8-3.0); PROTIME 17.2 SECONDS (9.4-12.5); PTT 38.8 SECONDS (25.1-36.5)
[2022-07-04 19:51] LABS: ALBUMIN 3.9 g/dL (3.5-5.0); ANION GAP 9.9 MEQ/L (5-15); BILIRUBIN,TOTAL 0.6 mg/dL (0.2-1.3); Calcium 8.5 mg/dL (8.4-10.2); Creatinine 1 1.09 mg/dL (0.52-1.04); EST GLOMERULAR FILTRATION RATE 51.3 ML/MIN; MAGNESIUM 2.1 mg/dL (1.6-2.3); Potassium 3.9 mmol/L (3.5-5.1); Total Protein 6.5 g/dL (6.3-8.2)
[2022-07-04] MEDS ORDERED: Sodium Chloride 0.9% 1000 ML 1,000 ML ONE (19:52)
[2022-07-04] MEDS ORDERED: Sodium Chloride 0.9% 500 ML 500 ML IV ONE (19:55)
[2022-07-04 20:45] VITALS: O2SAT 96
[2022-07-04 22:13] VITALS: BP 138/85
[2022-07-04 22:27] LABS: INFLUENZA A NEGATIVE (NEGATIVE); INFLUENZA B NEGATIVE (NEGATIVE); RESPIRATORY SYNCTIAL VIRUS NEGATIVE (Negative); SARS-CoV-2 Xpert Express NEGATIVE (NEGATIVE)
== END 2022-07-04 22:16 | disposition home or self-care (01) ==
LOC: ED 17:46
DX: R00.2 Palpitations (principal); Z79.01 Long term (current) use of anticoagulants; Z79.899 Other long term (current) drug therapy; Z20.828 Contact with and (suspected) exposure to other viral communicable diseases
CPT/HCPCS: 0241U; 36000; 36415; 71045; 80053; 81001; 83605; 83735; 83880; 84443; 84484; 85025; 85379; 85610; 85730; 87086; 93005; 99284

== ENCOUNTER 2023-04-28 19:04 | Observation (INO) | payer MEDICARE, OTHER ==
[2023-04-28] MEDS ORDERED: Sodium Chloride 0.9% 1000 ML 1,000 ML IV SCH (19:45)
[2023-04-28 20:11] LABS: Absolute Neutrophil Ct (ANC) 7.84 x10^3/uL (1.4-6.9); BASOPHIL % 0.3 % (0.0-0.4); Basophil (Absolute #) 0.03 x10^3/uL (0-0.4); Eosinophil (Absolute #) 0 x10^3/uL (0-0.5); Hematocrit 39.3 % (35-47); Hemoglobin 13.4 g/dL (12.0-16.0); IMMATURE GRAN # 0.11 x10^3u/L (0.00-0.03); IMMATURE GRAN % 1.1 % (0.00-0.4); Lymphocytes % 9.9 % (24.0-44.0); Mean Corpuscular Hgb Concent. 34.1 g/dL (32-36); Mean Platelet Volume 9.7 fL (7.5-11.0); Monocytes % 10.9 % (0.0-12.0); Neutrophil % 77.8 % (36.0-66.0); Platelet Count 249 x10^3/uL (150-450); Red Blood Count 4.32 x10^6/uL (4.1-5.4); Red Cell Distribution Width 12.4 % (11.5-14.0); White Blood Count 10.1 x10^3/uL (4.0-10.5)
[2023-04-28 20:25] LABS: ALBUMIN 3.7 g/dL (3.5-5.0); ANION GAP 11.6 MEQ/L (5-15); BILIRUBIN,TOTAL 1.6 mg/dL (0.2-1.3); Calcium 8.6 mg/dL (8.4-10.2); Creatinine 1 0.79 mg/dL (0.52-1.04); EST GLOMERULAR FILTRATION RATE 75.1 ML/MIN; Potassium 3.6 mmol/L (3.5-5.1); Total Protein 6.5 g/dL (6.3-8.2)
[2023-04-28] MEDS ORDERED: Sodium Chloride 0.9% 1000 ML 1,000 ML ONE (20:27)
--- NOTE | 2023-04-28 20:38 | ERPHSYRPT ---
- History of Present Illness Time Seen by Provider: 04/28/23 19:50 Source: patient Exam Limitations: no limitations Patient Subjective Stated Complaint: pt states she has had fever yesterday and today. shortness of breath with exertion and has had increased tiredness and s pent 24 hours in bed prior to coming in Triage Nursing Assessment: pt alert and oriented, anwers questions approp. pt back to room per wheelchair and transfers to stretcher per self. respirations nonlabored. pt reports shortness of breath with exertion. lung sounds cta bilat. occasional hacking cough noted. skin warm and dry. Physician History: Patient is an 83-year-old female presents to the emergency department for evaluation of a fever x 2 days. Additionally patient states she has been experiencing unusual shortness of breath with exertion. No chest pain. patient feels more tired than normal. Patient had a fever 100.4 just prior to arrival. No rash. No nausea vomiting or diaphoresis. Patient denies urinary symptomology. Symptoms are moderate in intensity. No specific worsening or improving factors. Patient denies history of the same. She voices no other complaints or concerns at this time. Portions of this note were created with voice recognition technology. There may be grammatical, spelling, punctuation or sound alike errors Timing/Duration: day(s) (2 days) Severity: moderate Modifying Factors: Improves With: nothing Associated Symptoms: denies symptoms Allergies/Adverse Reactions: ciprofloxacin Allergy (Intermediate, Verified 04/28/23 19:48) Swelling of Eyelids Sulfa (Sulfonamide Antibiotics) Allergy (Mild, Verified 04/28/23 19:48) Rash diphenhydramine [From Benadryl] Adverse Reaction (Mild, Verified 04/28/23 19:48) Home Medications: Cetirizine HCl [Zyrtec] 10 mg PO DAILY 02/25/22 [History] Lamotrigine 100 mg [lamICTAL 100MG TABLET] 150 mg PO BID 02/25/22 [History] Levothyroxine Sodium 100 Mcg [Synthroid 100 Mcg] 100 mcg PO DAILY 02/25/22 [History] Montelukast Sodium 10 mg [Singulair 10 MG] 10 mg PO DAILY 02/25/22 [History] Telmisartan 80 mg [Micardis 80 MG Tablet] 80 mg PO DAILY 02/25/22 [History] Fluticasone Propionate [Flonase NASAL] 16 gm NS DAILY 04/28/23 [History] Hydrochlorothiazide 25 mg [hydroDIURIL 25 MG] 25 mg PO DAILY 04/28/23 [History] Magnesium Oxide [Magnesium] 400 mg PO DAILY 04/28/23 [History] Methylcellulose [Citrucel] 500 mg PO UD 04/28/23 [History] Potassium Gluconate [Potassium] 99 mg PO DAILY 04/28/23 [History] Rivaroxaban [Xarelto] 20 mg PO DAILY 04/28/23 [History] dilTIAZem HCL [Diltiazem 24Hr ER] 180 mg PO DAILY 04/28/23 [History] Hx Tetanus, Diphtheria Vaccination/Date Given: Yes (Unknown) Hx Influenza Vaccination/Date Given: Yes Hx Pneumococcal Vaccination/Date Given: Yes (unknown) Immunizations Up to Date: Yes Travel Risk - International Travel Have you traveled outside of the country in past 3 weeks: No - Coronavirus Screening Are you exhibiting any of the following symptoms?: Yes Symptoms: Fever, Shortness of Breath Close contact with a COVID-19 positive Pt in past 14-21 Days: No - Vaccine Status Have you recieved a Covid-19 vaccination: Yes 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: [employer] - Vaccination Dates Date of 2cond Vaccination (if applicable): 06/04/2020 - Review of Systems Constitutional: No Symptoms, No Fever, No Chills Eyes: No Symptoms Ears, Nose, & Throat: No Symptoms Respiratory: No Symptoms, No Cough, No Dyspnea Cardiac: No Symptoms, No Chest Pain, No Edema, No Syncope Abdominal/Gastrointestinal: No Symptoms, No Abdominal Pain, No Nausea, No Vomiting, No Diarrhea Genitourinary Symptoms: No Symptoms, No Dysuria Musculoskeletal: No Symptoms, No Back Pain, No Neck Pain Skin: No Symptoms, No Rash Neurological: No Symptoms, No Dizziness, No Focal Weakness, No Sensory Changes Psychological: No Symptoms Endocrine: No Symptoms Hematologic/Lymphatic: No Symptoms Immunological/Allergic: No Symptoms All Other Systems: Reviewed and Negative - Past Medical History Pertinent Past Medical History: Yes Neurological History: Migraines ENT History: No Pertinent History Cardiac History: Arrhythmia, Coronary Artery Disease, Other Respiratory History: No Pertinent History Endocrine Medical History: No Pertinent History Musculoskeletal History: Osteoarthritis GI Medical History: No Pertinent History History: No Pertinent History Psycho-Social History: No Pertinent History Female Reproductive Disorders: No Pertinent History Other Medical History: 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 - Past Surgical History Past Surgical History: Yes Neuro Surgical History: No Pertinent History Cardiac: Cardiac Catheterization, Pacemaker Respiratory: No Pertinent History Gastrointestinal: No Pertinent History Genitourinary: No Pertinent History Musculoskeletal: Joint Replacement Female Surgical History: Hysterectomy Other Surgical History: Left Knee, Right Wrist - Social History Smoking Status: Never smoker Exposure to second hand smoke: No Drug Use: none Patient Lives Alone: Yes - Nursing Vital Signs Nursing Vital Signs: Initial Vital Signs Temperature 99.4 F 04/28/23 19:31 Pulse Rate 87 04/28/23 19:31 Respiratory Rate 18 04/28/23 19:31 Blood Pressure 127/79 04/28/23 19:31 O2 Sat by Pulse Oximetry 92 L 04/28/23 19:31 Pain Scale Pain Intensity 0 - Physical Exam General Appearance: no apparent distress, alert Eye Exam: PERRL/EOMI, eyes nml inspection Ears, Nose, Throat Exam: normal ENT inspection, TMs normal, pharynx normal, moist mucous membranes Neck Exam: normal inspection, non-tender, supple, full range of motion Respiratory Exam: normal breath sounds, lungs clear, airway intact, No respiratory distress Cardiovascular Exam: regular rate/rhythm, normal heart sounds, normal peripheral pulses Gastrointestinal/Abdomen Exam: soft, normal bowel sounds, No tenderness, No mass Back Exam: normal inspection, normal range of motion, No CVA tenderness, No vertebral tenderness Extremity Exam: normal inspection, normal range of motion, pelvis stable Neurologic Exam: alert, oriented x 3, cooperative, normal mood/affect, nml cerebellar function, nml station & gait, sensation nml, No motor deficits Skin Exam: normal color, warm, dry, No rash Lymphatic Exam: No adenopathy SpO2 Interpretation: normal SpO2: 95 O2 Delivery: Room Air - Course Nursing assessment & vital signs reviewed: Yes EKG Interpreted by Me: RATE (81), Sinus Rhythm, NORMAL AXIS, NORMAL INTERVALS - Radiology Exams Chest X-ray Interpretation: Interpreted by me (Atelectasis, no acute findings) Ordered Tests: Active Orders 24 hr Category Date Time Status Up With Assistance TOLERATED Activity 04/28/23 23:09 Active Program Strategist STAT Care 04/28/23 19:38 Active Code Status Order ROUTINE Care 04/28/23 23:09 Active EKG-ER Only STAT Care 04/28/23 19:38 Active IV Insertion STAT Care 04/28/23 19:38 Active Pulse Oximetry (ED) STAT Care 04/28/23 19:38 Active Heart-Healthy Diet Diet 04/29/23 Breakfast Active CHEST 1 VIEW (PORTABLE) Stat Exams 04/28/23 19:38 Taken BLOOD CULTURE Stat Lab 04/28/23 20:00 Received CBC W DIFF AM.LAB Lab 04/29/23 04:00 Ordered CBC W DIFF Stat Lab 04/28/23 19:50 Completed CMP AM.LAB Lab 04/29/23 04:00 Ordered CMP Stat Lab 04/28/23 19:50 Completed CREATININE,URINE RANDOM Stat Lab 04/28/23 21:08 Received CULTURE,URINE Stat Lab 04/28/23 20:54 Received Lactic Acid Stat Lab 04/28/23 20:07 Completed Sodium, Urine Stat Lab 04/28/23 21:08 Received TSH [TSH, 3RD Generation] AM.LAB Lab 04/29/23 04:00 Ordered UA W/RFX UR CULTURE Stat Lab 04/28/23 20:54 Completed Transfer Order Routine Transfer 04/28/23 Ordered Medication Summary Generic Name Dose Route Start Last Admin Trade Name Freq PRN Reason Stop Dose Admin Acetaminophen 325 mg 04/28/23 23:08 Acetaminophen 325 Mg Tablet PO 05/28/23 23:07 Q4H PRN PRN PAIN, FEVER, HEADACHE Diltiazem HCl 180 mg 04/29/23 10:00 Diltiazem Hcl Cd 180 Mg Cap.Sr.24h PO 05/29/23 09:59 DAILY KATHERYN Sodium Chloride 1,000 mls @ 75 mls/hr 04/28/23 19:45 04/28/23 20:28 Sodium Chloride 0.9% 1000 Ml IV 05/28/23 19:44 50 mls/hr .[id number] KATHERYN Administration Ceftriaxone Sodium/Dextrose 1 g in 50 mls @ 100 mls/hr 04/29/23 10:00 Rocephin 1 Gm-D5w 50 Ml Bag IV 05/02/23 09:59 Q24H10 KATHERYN Levothyroxine Sodium 100 mcg 04/29/23 07:00 Levothyroxine Sodium 100 Mcg Tablet PO 05/29/23 06:59 DAILY@0700 [facility] Rivaroxaban 20 mg 04/29/23 10:00 Rivaroxaban 10 Mg Tablet PO 05/29/23 09:59 DAILY [facility] Telmisartan 80 mg 04/29/23 10:00 Telmisartan 80 Mg Tab PO 05/29/23 09:59 DAILY KATHERYN Discontinued Medications Generic Name Dose Route Start Last Admin Trade Name Freq PRN Reason Stop Dose Admin Ceftriaxone Sodium/Dextrose 1 g in 50 mls @ 100 mls/hr 04/28/23 22:15 04/28/23 22:29 Rocephin 1 Gm-D5w 50 Ml Bag IV 04/28/23 22:44 100 mls/hr STAT STA 100 mls/hr Administration Ceftriaxone Sodium/Dextrose Confirm 04/28/23 22:25 Rocephin 1 Gm-D5w 50 Ml Bag Administered 04/28/23 22:26 Dose 1 g in 50 mls @ IV .STK-MED ONE Lab/Rad Data: Laboratory Result Diagrams 04/28/23 19:50 04/28/23 19:50 Laboratory Results 04/28/23 04/28/23 04/28/23 Range/Units 20:54 20:07 20:00 WBC (4.0-10.5) x10^3/uL RBC (4.1-5.4) x10^6/uL Hgb (12.0-16.0) g/dL Hct (35-47) % MCV (78-100) fL MCH (26-32) pg MCHC (32-36) g/dL RDW (11.5-14.0) % Plt Count (150-450) x10^3/uL MPV (7.5-11.0) fL Gran % (36.0-66.0) % Immature Gran % (Auto) (0.00-0.4) % Nucleat RBC Rel Count (0.00-0.1) % Eos # (Auto) (0-0.5) x10^3/uL Immature Gran # (Auto) (0.00-0.03) x10^3u/L Absolute Lymphs (auto) (1.0-4.6) x10^3/uL Absolute Monos (auto) (0.0-1.3) x10^3/uL Absolute Nucleated RBC (0.00-0.01) x10^3u/L Lymphocytes % (24.0-44.0) % Monocytes % (0.0-12.0) % Eosinophils % (0.00-5.0) % Basophils % (0.0-0.4) % Absolute Granulocytes (1.4-6.9) x10^3/uL Basophils # (0-0.4) x10^3/uL Sodium (137-145) mmol/L Potassium (3.5-5.1) mmol/L Chloride (98-107) mmol/L Carbon Dioxide (22-30) mmol/L Anion Gap (5-15) MEQ/L BUN (7-17) mg/dL Creatinine (0.52-1.04) mg/dL Estimated GFR ML/MIN Glucose (74-106) mg/dL Lactic Acid 1.3 (0.4-2.0) Calcium (8.4-10.2) mg/dL Total Bilirubin (0.2-1.3) mg/dL AST (14-36) U/L ALT (0-35) U/L Alkaline Phosphatase (38-126) U/L Serum Total Protein (6.3-8.2) g/dL Albumin (3.5-5.0) g/dL Urine Color Dark Yellow A (Yellow) Urine Appearance Clear (Clear) Urine pH 5.5 (4.6-8.0) Ur Specific [place] 1.020 (1.005-1.030) Urine Protein 30 (Negative) Urine Glucose (UA) Negative (Negative) mg/dL Urine Ketones 80 A (Negative) Urine Blood Trace (Negative) Urine Nitrite Negative (Negative) Urine Bilirubin Moderate A (Negative) Urine Urobilinogen 1.0 A (0.2) mg/dL Ur Leukocyte Esterase Small A (Negative) U Hyaline Cast (Auto) 3-5 A (0-2) /LPF Urine Microscopic RBC 6-10 A (0-5) /HPF Urine Microscopic WBC 21-50 A (0-5) /HPF Ur Epithelial Cells Few (None Seen) /HPF Urine Bacteria None Seen (None Seen) /HPF Urine Culture Reflexed YES (NO) Influenza Type A Ag NEGATIVE (NEGATIVE) Influenza Type B Ag NEGATIVE (NEGATIVE) RSV (PCR) NEGATIVE (NEGATIVE) SARS-CoV-2 (PCR) NEGATIVE (NEGATIVE) 04/28/23 04/28/23 Range/Units 19:50 19:50 WBC 10.1 (4.0-10.5) x10^3/uL RBC 4.32 (4.1-5.4) x10^6/uL Hgb 13.4 (12.0-16.0) g/dL Hct 39.3 (35-47) % MCV 91.0 (78-100) fL MCH 31.0 (26-32) pg MCHC 34.1 (32-36) g/dL RDW 12.4 (11.5-14.0) % Plt Count 249 (150-450) x10^3/uL MPV 9.7 (7.5-11.0) fL Gran % 77.8 H (36.0-66.0) % Immature Gran % (Auto) 1.1 H (0.00-0.4) % Nucleat RBC Rel Count 0.0 (0.00-0.1) % Eos # (Auto) 0 (0-0.5) x10^3/uL Immature Gran # (Auto) 0.11 H (0.00-0.03) x10^3u/L Absolute Lymphs (auto) 1.00 (1.0-4.6) x10^3/uL Absolute Monos (auto) 1.10 (0.0-1.3) x10^3/uL Absolute Nucleated RBC 0.00 (0.00-0.01) x10^3u/L Lymphocytes % 9.9 L (24.0-44.0) % Monocytes % 10.9 (0.0-12.0) % Eosinophils % 0.0 (0.00-5.0) % Basophils % 0.3 (0.0-0.4) % Absolute Granulocytes 7.84 H (1.4-6.9) x10^3/uL Basophils # 0.03 (0-0.4) x10^3/uL Sodium 124 L (137-145) mmol/L Potassium 3.6 (3.5-5.1) mmol/L Chloride 86 L (98-107) mmol/L Carbon Dioxide 30 (22-30) mmol/L Anion Gap 11.6 (5-15) MEQ/L BUN 12 (7-17) mg/dL Creatinine 0.79 (0.52-1.04) mg/dL Estimated GFR 75.1 ML/MIN Glucose 115 H (74-106) mg/dL Lactic Acid (0.4-2.0) Calcium 8.6 (8.4-10.2) mg/dL Total Bilirubin 1.60 H (0.2-1.3) mg/dL AST 37 H (14-36) U/L ALT 23 (0-35) U/L Alkaline Phosphatase 112 (38-126) U/L Serum Total Protein 6.5 (6.3-8.2) g/dL Albumin 3.7 (3.5-5.0) g/dL Urine Color (Yellow) Urine Appearance (Clear) Urine pH (4.6-8.0) Ur Specific [place] (1.005-1.030) Urine Protein (Negative) Urine Glucose (UA) (Negative) mg/dL Urine Ketones (Negative) Urine Blood (Negative) Urine Nitrite (Negative) Urine Bilirubin (Negative) Urine Urobilinogen (0.2) mg/dL Ur Leukocyte Esterase (Negative) U Hyaline Cast (Auto) (0-2) /LPF Urine Microscopic RBC (0-5) /HPF Urine Microscopic WBC (0-5) /HPF Ur Epithelial Cells (None Seen) /HPF Urine Bacteria (None Seen) /HPF Urine Culture Reflexed (NO) Influenza Type A Ag (NEGATIVE) Influenza Type B Ag (NEGATIVE) RSV (PCR) (NEGATIVE) SARS-CoV-2 (PCR) (NEGATIVE) - Progress Progress: improved Progress Note: 83-year-old female presents to our ED for evaluation of a fever and generalized weakness. Physical exam essentially nonremarkable. Laboratory workup reveals a hyponatremia at 124. Patient also has a urinary tract infection. In light of the fever and the UTI pyelonephritis will need to be evaluated. Patient received IV fluids and initial dose of Rocephin in our ED. Patient declined pain medication. Chest x-ray negative for pneumonia. Plan of care established for shared decision making. Patient agrees to admission to [facility] for further evaluation and treatment. Portions of this note were created with voice recognition technology. There may be grammatical, spelling, punctuation or sound alike errors Complexity of problem addressed is moderate acute complicated No critical care time Complexity of data reviewed and analyzed is extensive. Test ordered test reviewed. Results analyzed and correlated clinically with history and physical examination. Management discussed with hospitalist who accepts admission to observation Risk complication and or risk of morbidity/mortality of patient management is high. Patient will be admitted for further evaluation and treatment. Vital stable. Time spent admit patient is approximately 15 minutes. Plan of care established for shared decision making. No social determinants of health present impede follow-up. Portions of this note were created with voice recognition technology. There may be grammatical, spelling, punctuation or sound alike errors Bridging orders entered 04/28/23 23:31 Counseled pt/family regarding: lab results, diagnosis - Departure Departure Disposition: Observation Clinical Impression: Hyponatremia, Fatigue, UTI (urinary tract infection), Fever, Generalized weakness, Pyelonephritis Condition: Stable Critical Care Time: No Referrals: KEARA BENITEZ DO [Primary Care Provider] - Follow up/PCP as directed
[2023-04-28 20:49] LABS: INFLUENZA A NEGATIVE (NEGATIVE); INFLUENZA B NEGATIVE (NEGATIVE); RESPIRATORY SYNCTIAL VIRUS NEGATIVE (NEGATIVE); SARS-CoV-2 Xpert Express NEGATIVE (NEGATIVE)
[2023-04-28 21:08] LABS: Appearance Clear (Clear); Bacteria None Seen /HPF (None Seen); Bilirubin Moderate (Negative); Blood Trace (Negative); Epithelial Cells Few /HPF (None Seen); Glucose, Urine Negative (Negative); Ketones 80 (Negative); Leukocyte Esterase Small (Negative); Nitrite Negative (Negative); Ph 5.5 (4.6-8.0); Protein,Urine Dip 30 (Negative); WBC 21-50 /HPF (0-5)
[2023-04-28 21:20] LABS: ADD URINE CULTURE? YES (NO)
[2023-04-28] MEDS ORDERED: ROCEPHIN 1 Gm-D5w 50 ml Bag** 1 G/50 ML IVPB IV STA (22:15)
[2023-04-28] MEDS ORDERED: ROCEPHIN 1 Gm-D5w 50 ml Bag** 1 G/50 ML IVPB IV ONE (22:25)
[2023-04-28] MEDS ORDERED: TYLENOL 325 MG PO PRN (23:08)
[2023-04-28 23:36] LABS: CREATININE,URINE RANDOM 245.3 MG/DL
--- NOTE | 2023-04-28 23:53 | PCM.HP ---
History of Present Illness - Chief Complaint Chief Complaint: fever Date: 04/28/23 History of Present Illness: Ms Franco is a 83 year old female with a past medical history significant for hypertension, hypothyroidism and hyperlipidemia who presents to the hospital with complaints of fever, weakness and shortness of breath. Upon arrival, she was evaluated in the ER and thought to have possible pyelonephritis as urinalysis demonstrated some WBC, ketones, and bacteria, though nitrites negative. Initial labs were notable for a sodium of 124, so she was recommended for admission. She is resting in bed, awake/alert. She appears in no acute distress and hemodynamically stable. No dysuria, hematuria, or foamy urine. - Review of Systems Constitutional: Fever, Fatigue, Lethargy Eyes: No Discharge Ears, Nose, & Throat: No Tinnitus, No Sinus Drainage Respiratory: Cough, Short Of Breath, No Wheezing Cardiac: No Chest Pain, No Edema, No Palpitations Abdominal/Gastrointestinal: No Nausea, No Vomiting, No Diarrhea Genitourinary Symptoms: No Dysuria, No Frequency, No Hematuria, No Hesitancy, No Flank Pain Musculoskeletal: No Arthralgias Skin: No Rash Neurological: Lethargy Psychological: No Hallucinations Endocrine: No Symptoms Hematologic/Lymphatic: No Symptoms Immunological/Allergic: No Symptoms All Other Systems: Reviewed and Negative Medications & Allergies Home Medications: Home Medication List Cetirizine HCl [Zyrtec] 10 mg PO DAILY 02/25/22 [History Confirmed 04/28/23] Lamotrigine 100 mg [lamICTAL 100MG TABLET] 150 mg PO BID 02/25/22 [History Confirmed 04/28/23] Levothyroxine Sodium 100 Mcg [Synthroid 100 Mcg] 100 mcg PO DAILY 02/25/22 [History Confirmed 04/28/23] Montelukast Sodium 10 mg [Singulair 10 MG] 10 mg PO DAILY 02/25/22 [History Confirmed 04/28/23] Telmisartan 80 mg [Micardis 80 MG Tablet] 80 mg PO DAILY 02/25/22 [History Confirmed 04/28/23] Fluticasone Propionate [Flonase NASAL] 16 gm NS DAILY 04/28/23 [History Confirmed 04/28/23] Hydrochlorothiazide 25 mg [hydroDIURIL 25 MG] 25 mg PO DAILY 04/28/23 [History Confirmed 04/28/23] Magnesium Oxide [Magnesium] 400 mg PO DAILY 04/28/23 [History Confirmed 04/28/23] Methylcellulose [Citrucel] 500 mg PO UD 04/28/23 [History Confirmed 04/28/23] Potassium Gluconate [Potassium] 99 mg PO DAILY 04/28/23 [History Confirmed 04/28/23] Rivaroxaban [Xarelto] 20 mg PO DAILY 04/28/23 [History Confirmed 04/28/23] dilTIAZem HCL [Diltiazem 24Hr ER] 180 mg PO DAILY 04/28/23 [History Confirmed 04/28/23] Allergies/Adverse Reactions: Allergies Allergy/AdvReac Type Severity Reaction Status Date / Time ciprofloxacin Allergy Intermediate Swelling Verified 04/28/23 19:48 of Eyelids Sulfa (Sulfonamide Allergy Mild Rash Verified 04/28/23 19:48 Antibiotics) diphenhydramine AdvReac Mild Verified 04/28/23 19:48 [From Benadryl] - Past Medical History Past Medical History: Yes Neurological History: Migraines ENT History: No Pertinent History Cardiac History: Arrhythmia, Coronary Artery Disease, Other Respiratory History: No Pertinent History Endocrine Medical History: No Pertinent History Musculoskelatal History: Osteoarthritis GI Medical History: No Pertinent History History: No Pertinent History Pyscho-Social History: No Pertinent History Reproductive Disorders: No Pertinent History Comment: 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 - Past Surgical History Past Surgical History: Yes Neuro Surgical History: No Pertinent History Cardiac History: Cardiac Catheterization, Pacemaker Respiratory Surgery: No Pertinent History GI Surgical History: No Pertinent History Genitourinary Surgical Hx: No Pertinent History Musculskeletal Surgical Hx: Joint Replacement Female Surgical History: Hysterectomy Other Surgical History: Left Knee, Right Wrist - Social History Smoking Status: Never smoker Exposure to second hand smoke: No Alcohol: None Drug Use: none - Physical Exam Vital Signs: Vital Signs - 24 hr Temp Pulse Resp BP BP Pulse Ox 04/28/23 23:36 95 04/28/23 23:00 70 23 144/76 92 L 04/28/23 22:30 70 20 140/73 95 04/28/23 22:00 70 23 117/79 94 L 04/28/23 21:30 80 17 136/78 95 04/28/23 21:00 79 18 123/89 92 L 04/28/23 20:30 81 26 H 125/81 91 L 04/28/23 20:26 95 04/28/23 20:24 83 16 128/72 96 04/28/23 19:31 99.4 F 87 18 127/79 92 L General Appearance: no apparent distress Neurologic Exam: alert, cooperative, No confusion Ears, Nose, Throat Exam: dry mucous membranes Neck Exam: supple Respiratory Exam: No accessory muscle use, No crackles/rales, No rhonchi Cardiovascular Exam: regular rate/rhythm Gastrointestinal/Abdomen Exam: soft Extremity Exam: No pedal edema, No swelling Skin Exam: warm, No rash, No jaundice Results - Labs Lab/Micro Results: Lab Results-Last 24 Hours 04/28/23 04/28/23 04/28/23 Range/Units 19:50 19:50 20:00 WBC 10.1 (4.0-10.5) x10^3/uL RBC 4.32 (4.1-5.4) x10^6/uL Hgb 13.4 (12.0-16.0) g/dL Hct 39.3 (35-47) % MCV 91.0 (78-100) fL MCH 31.0 (26-32) pg MCHC 34.1 (32-36) g/dL RDW 12.4 (11.5-14.0) % Plt Count 249 (150-450) x10^3/uL MPV 9.7 (7.5-11.0) fL Gran % 77.8 H (36.0-66.0) % Immature Gran % (Auto) 1.1 H (0.00-0.4) % Nucleat RBC Rel Count 0.0 (0.00-0.1) % Eos # (Auto) 0 (0-0.5) x10^3/uL Immature Gran # (Auto) 0.11 H (0.00-0.03) x10^3u/L Absolute Lymphs (auto) 1.00 (1.0-4.6) x10^3/uL Absolute Monos (auto) 1.10 (0.0-1.3) x10^3/uL Absolute Nucleated RBC 0.00 (0.00-0.01) x10^3u/L Lymphocytes % 9.9 L (24.0-44.0) % Monocytes % 10.9 (0.0-12.0) % Eosinophils % 0.0 (0.00-5.0) % Basophils % 0.3 (0.0-0.4) % Absolute Granulocytes 7.84 H (1.4-6.9) x10^3/uL Basophils # 0.03 (0-0.4) x10^3/uL Sodium 124 L (137-145) mmol/L Potassium 3.6 (3.5-5.1) mmol/L Chloride 86 L (98-107) mmol/L Carbon Dioxide 30 (22-30) mmol/L Anion Gap 11.6 (5-15) MEQ/L BUN 12 (7-17) mg/dL Creatinine 0.79 (0.52-1.04) mg/dL Estimated GFR 75.1 ML/MIN Glucose 115 H (74-106) mg/dL Lactic Acid (0.4-2.0) Calcium 8.6 (8.4-10.2) mg/dL Total Bilirubin 1.60 H (0.2-1.3) mg/dL AST 37 H (14-36) U/L ALT 23 (0-35) U/L Alkaline Phosphatase 112 (38-126) U/L Serum Total Protein 6.5 (6.3-8.2) g/dL Albumin 3.7 (3.5-5.0) g/dL Urine Color (Yellow) Urine Appearance (Clear) Urine pH (4.6-8.0) Ur Specific [place] (1.005-1.030) Urine Protein (Negative) Urine Glucose (UA) (Negative) mg/dL Urine Ketones (Negative) Urine Blood (Negative) Urine Nitrite (Negative) Urine Bilirubin (Negative) Urine Urobilinogen (0.2) mg/dL Ur Leukocyte Esterase (Negative) U Hyaline Cast (Auto) (0-2) /LPF Urine Microscopic RBC (0-5) /HPF Urine Microscopic WBC (0-5) /HPF Ur Epithelial Cells (None Seen) /HPF Urine Bacteria (None Seen) /HPF Urine Culture Reflexed (NO) Ur Random Creatinine MG/DL Urine Sodium (30-90) mmol/L Influenza Type A Ag NEGATIVE (NEGATIVE) Influenza Type B Ag NEGATIVE (NEGATIVE) RSV (PCR) NEGATIVE (NEGATIVE) SARS-CoV-2 (PCR) NEGATIVE (NEGATIVE) 04/28/23 04/28/23 04/28/23 Range/Units 20:07 20:54 21:08 WBC (4.0-10.5) x10^3/uL RBC (4.1-5.4) x10^6/uL Hgb (12.0-16.0) g/dL Hct (35-47) % MCV (78-100) fL MCH (26-32) pg MCHC (32-36) g/dL RDW (11.5-14.0) % Plt Count (150-450) x10^3/uL MPV (7.5-11.0) fL Gran % (36.0-66.0) % Immature Gran % (Auto) (0.00-0.4) % Nucleat RBC Rel Count (0.00-0.1) % Eos # (Auto) (0-0.5) x10^3/uL Immature Gran # (Auto) (0.00-0.03) x10^3u/L Absolute Lymphs (auto) (1.0-4.6) x10^3/uL Absolute Monos (auto) (0.0-1.3) x10^3/uL Absolute Nucleated RBC (0.00-0.01) x10^3u/L Lymphocytes % (24.0-44.0) % Monocytes % (0.0-12.0) % Eosinophils % (0.00-5.0) % Basophils % (0.0-0.4) % Absolute Granulocytes (1.4-6.9) x10^3/uL Basophils # (0-0.4) x10^3/uL Sodium (137-145) mmol/L Potassium (3.5-5.1) mmol/L Chloride (98-107) mmol/L Carbon Dioxide (22-30) mmol/L Anion Gap (5-15) MEQ/L BUN (7-17) mg/dL Creatinine (0.52-1.04) mg/dL Estimated GFR ML/MIN Glucose (74-106) mg/dL Lactic Acid 1.3 (0.4-2.0) Calcium (8.4-10.2) mg/dL Total Bilirubin (0.2-1.3) mg/dL AST (14-36) U/L ALT (0-35) U/L Alkaline Phosphatase (38-126) U/L Serum Total Protein (6.3-8.2) g/dL Albumin (3.5-5.0) g/dL Urine Color Dark Yellow A (Yellow) Urine Appearance Clear (Clear) Urine pH 5.5 (4.6-8.0) Ur Specific [place] 1.020 (1.005-1.030) Urine Protein 30 (Negative) Urine Glucose (UA) Negative (Negative) mg/dL Urine Ketones 80 A (Negative) Urine Blood Trace (Negative) Urine Nitrite Negative (Negative) Urine Bilirubin Moderate A (Negative) Urine Urobilinogen 1.0 A (0.2) mg/dL Ur Leukocyte Esterase Small A (Negative) U Hyaline Cast (Auto) 3-5 A (0-2) /LPF Urine Microscopic RBC 6-10 A (0-5) /HPF Urine Microscopic WBC 21-50 A (0-5) /HPF Ur Epithelial Cells Few (None Seen) /HPF Urine Bacteria None Seen (None Seen) /HPF Urine Culture Reflexed YES (NO) Ur Random Creatinine 245.3 MG/DL Urine Sodium 21 L (30-90) mmol/L Influenza Type A Ag (NEGATIVE) Influenza Type B Ag (NEGATIVE) RSV (PCR) (NEGATIVE) SARS-CoV-2 (PCR) (NEGATIVE) - Radiology Impressions Radiology Exams & Impressions: Radiology Procedures Category Date Time Status CHEST 1 VIEW (PORTABLE) Stat Exams 04/28/23 19:38 Taken Assessment/Plan (1) Essential (primary) hypertension Current Visit: Yes Status: Acute Assessment & Plan: Under reasonable control 1. Continue Micardis 2. Hold thiazide diuretic given hyponatremia 3. Low salt diet 4. Monitor blood pressure readings Code(s): I10 - ESSENTIAL (PRIMARY) HYPERTENSION (2) Hypothyroidism Current Visit: Yes Status: Acute Assessment & Plan: On Levothyroxine 1. Continue meds 2. Check TSH Code(s): E03.9 - HYPOTHYROIDISM, UNSPECIFIED (3) Fever Current Visit: Yes Status: Acute Assessment & Plan: Unclear etiology but may be related to UTI/pyelo versus viral pneumonia 1. Will admit to the hospital under observation status 2. Empiric antibiotics with Rocephin 3. Check blood/urine cultures 4. Trend fever curve 5. Monitor WBC/shift Code(s): R50.9 - FEVER, UNSPECIFIED (4) Hyponatremia Current Visit: Yes Status: Acute Assessment & Plan: Likely from hypovolemia/poor PO intake exacerbated by thiazide diuretic, but need to rule out SIADH or overt hypothyroidism 1. NS IVFs 2. Check urine lytes, urine osmo 3. Check TSH 4. Hold HCTZ 5. Monitor electrolytes closely - no need for hypertonic saline Code(s): E87.1 - HYPO-OSMOLALITY AND HYPONATREMIA Telemedicine Encounter - Telemedicine Encounter Telemedicine Encounter: The entirety of this encounter was performed via Telemedicine"
[2023-04-29] MEDS ORDERED: TYLENOL 325 MG PO PRN (01:17)
[2023-04-29] MEDS ORDERED: Sodium Chloride 0.9% 1000 ML 1,000 ML IV SCH (01:30)
[2023-04-29] MEDS: Sodium Chloride 0.9% 1000 ML 1,000 ML IV SCH ×2 (02:00→13:42)
[2023-04-29] MEDS ORDERED: SYNTHROID 100 MCG PO SCH (07:00)
[2023-04-29 07:13] LABS: ALBUMIN 2.9 g/dL (3.5-5.0); ANION GAP 8.2 MEQ/L (5-15); Calcium 7.9 mg/dL (8.4-10.2); Creatinine 1 0.57 mg/dL (0.52-1.04); EST GLOMERULAR FILTRATION RATE 91.2 ML/MIN; TSH, 3RD Generation 0.39 mIU/L (0.47-4.68); Total Protein 5.6 g/dL (6.3-8.2)
[2023-04-29 07:34] LABS: Potassium 2.9 mmol/L (3.5-5.1)
[2023-04-29] MEDS: SYNTHROID 100 MCG PO SCH (08:05)
[2023-04-29] MEDS: Micardis 80 MG Tablet PO SCH (08:06)
[2023-04-29] MEDS: Klor Con PO SCH ×4 (08:06→13:41)
[2023-04-29] MEDS: Cardizem CD PO SCH (08:06)
[2023-04-29] MEDS: XARELTO 10 MG TABLET PO SCH (08:06)
--- NOTE | 2023-04-29 08:43 | XRAY ---
Indication: Fever. Comparison: April 04, 2023 Portable chest less inflated and rotated without focal infiltrate, consolidation, or large effusion. Heart not enlarged again with left pacemaker. Bony thorax intact. No new/acute findings.
[2023-04-29] MEDS ORDERED: Micardis 80 MG Tablet PO SCH ×2 (10:00)
[2023-04-29] MEDS ORDERED: Cardizem CD PO SCH ×2 (10:00)
[2023-04-29] MEDS ORDERED: XARELTO 10 MG TABLET PO SCH (10:00)
[2023-04-29] MEDS ORDERED: ROCEPHIN 1 Gm-D5w 50 ml Bag** 1 G/50 ML IVPB IV SCH ×4 (10:00→22:00)
--- NOTE | 2023-04-29 10:53 | PCM.NOTE ---
Date and Time: 04/29/23 1047 Subjective Assessment: Ms Franco is a 83 year old female with a past medical history significant for hypertension, hypothyroidism,and hyperlipidemia. She presented to the hospital with complaints of fever, weakness and shortness of breath. Upon arrival, she was evaluated in the ER and thought to have possible pyelonephritis as ur inalysis demonstrated some WBC, ketones, and bacteria, though nitrites negative. Initial labs were notable for a sodium of 124, so she was recommended for admission. Today she is resting in bed, awake/alert. She appears in no acute distress and hemodynamically stable. No dysuria, hematuria, or foamy urine. She reports she is feeling better today but not quite herself. K+ 2.9 and replaced. Na+ has improved and 126. US and BC are both pending. She denies CP, SOB, abd. pain, N/V/D. Will have PT work with pt today for continued weakness. - Review of Systems Constitutional: Fatigue, Weakness, No Fever, No Chills Eyes: No Symptoms Ears, Nose, & Throat: No Symptoms Respiratory: No Cough, No Short Of Breath Cardiac: No Chest Pain, No Edema, No Syncope Abdominal/Gastrointestinal: No Abdominal Pain, No Nausea, No Vomiting, No Diar monika Genitourinary Symptoms: No Dysuria Musculoskeletal: No Back Pain, No Neck Pain Skin: No Rash Neurological: No Dizziness, No Focal Weakness, No Sensory Changes Psychological: No Symptoms Endocrine: No Symptoms Hematologic/Lymphatic: No Symptoms Immunological/Allergic: No Symptoms Objective Exam General Appearance: no apparent distress, alert Neurologic Exam: alert, oriented x 3, cooperative, normal mood/affect, nml cerebellar function, sensation nml, No motor deficits Skin Exam: normal color, warm, dry Eye Exam: PERRL, EOMI, eyes nml inspection Ears, Nose, Throat Exam: normal ENT inspection, pharynx normal, moist mucous membranes Neck Exam: normal inspection, non-tender, supple, full range of motion Respiratory Exam: normal breath sounds, lungs clear, No respiratory distress Cardiovascular Exam: regular rate/rhythm, normal heart sounds Gastrointestinal/Abdomen Exam: soft, No tenderness, No mass Extremity Exam: normal inspection, normal range of motion Back Exam: normal inspection, normal range of motion, No CVA tenderness, No vertebral tenderness Pelvic Exam: deferred Rectal Exam: deferred OBJECTIVE DATA Vital Signs: Vital Signs - 24 hr Temp Pulse Resp BP BP Pulse Ox 04/29/23 08:41 92 L 04/29/23 08:00 16 04/29/23 07:16 97.1 F 75 16 135/73 95 04/29/23 07:13 95 04/29/23 04:00 97.5 F 77 18 124/57 90 L 04/29/23 01:03 97.0 F 68 20 158/70 93 L 04/29/23 00:00 143/75 04/28/23 23:36 95 04/28/23 23:31 68 20 153/71 92 L 04/28/23 23:00 79 18 144/76 94 L 04/28/23 22:30 70 20 140/73 95 04/28/23 22:00 70 23 117/79 94 L 04/28/23 21:30 80 17 136/78 95 04/28/23 21:00 79 18 123/89 92 L 04/28/23 20:30 81 26 H 125/81 91 L 04/28/23 20:26 95 04/28/23 20:24 83 16 128/72 96 04/28/23 19:31 99.4 F 87 18 127/79 92 L Pain Assessment - Last Documented Pain Intensity 0 Intake and Output: Intake & Output 04/26/23 04/27/23 04/28/23 04/29/23 11:59 11:59 11:59 11:59 Intake Total 235 Output Total 350 Balance -115 Weight 94.3 kg Lab Results: Lab Results-Last 24 Hours 04/28/23 04/28/23 04/28/23 Range/Units 19:50 19:50 20:00 WBC 10.1 (4.0-10.5) x10^3/uL RBC 4.32 (4.1-5.4) x10^6/uL Hgb 13.4 (12.0-16.0) g/dL Hct 39.3 (35-47) % MCV 91.0 (78-100) fL MCH 31.0 (26-32) pg MCHC 34.1 (32-36) g/dL RDW 12.4 (11.5-14.0) % Plt Count 249 (150-450) x10^3/uL MPV 9.7 (7.5-11.0) fL Gran % 77.8 H (36.0-66.0) % Immature Gran % (Auto) 1.1 H (0.00-0.4) % Nucleat RBC Rel Count 0.0 (0.00-0.1) % Eos # (Auto) 0 (0-0.5) x10^3/uL Immature Gran # (Auto) 0.11 H (0.00-0.03) x10^3u/L Absolute Lymphs (auto) 1.00 (1.0-4.6) x10^3/uL Absolute Monos (auto) 1.10 (0.0-1.3) x10^3/uL Absolute Nucleated RBC 0.00 (0.00-0.01) x10^3u/L Lymphocytes % 9.9 L (24.0-44.0) % Monocytes % 10.9 (0.0-12.0) % Eosinophils % 0.0 (0.00-5.0) % Basophils % 0.3 (0.0-0.4) % Absolute Granulocytes 7.84 H (1.4-6.9) x10^3/uL Basophils # 0.03 (0-0.4) x10^3/uL Sodium 124 L (137-145) mmol/L Potassium 3.6 (3.5-5.1) mmol/L Chloride 86 L (98-107) mmol/L Carbon Dioxide 30 (22-30) mmol/L Anion Gap 11.6 (5-15) MEQ/L BUN 12 (7-17) mg/dL Creatinine 0.79 (0.52-1.04) mg/dL Estimated GFR 75.1 ML/MIN Glucose 115 H (74-106) mg/dL Lactic Acid (0.4-2.0) Calcium 8.6 (8.4-10.2) mg/dL Magnesium Total Bilirubin 1.60 H (0.2-1.3) mg/dL AST 37 H (14-36) U/L ALT 23 (0-35) U/L Alkaline Phosphatase 112 (38-126) U/L Serum Total Protein 6.5 (6.3-8.2) g/dL Albumin 3.7 (3.5-5.0) g/dL TSH 3rd Generation (0.47-4.68) mIU/L Urine Color (Yellow) Urine Appearance (Clear) Urine pH (4.6-8.0) Ur Specific [place] (1.005-1.030) Urine Protein (Negative) Urine Glucose (UA) (Negative) mg/dL Urine Ketones (Negative) Urine Blood (Negative) Urine Nitrite (Negative) Urine Bilirubin (Negative) Urine Urobilinogen (0.2) mg/dL Ur Leukocyte Esterase (Negative) U Hyaline Cast (Auto) (0-2) /LPF Urine Microscopic RBC (0-5) /HPF Urine Microscopic WBC (0-5) /HPF Ur Epithelial Cells (None Seen) /HPF Urine Bacteria (None Seen) /HPF Urine Culture Reflexed (NO) Ur Random Creatinine MG/DL Urine Sodium (30-90) mmol/L Influenza Type A Ag NEGATIVE (NEGATIVE) Influenza Type B Ag NEGATIVE (NEGATIVE) RSV (PCR) NEGATIVE (NEGATIVE) SARS-CoV-2 (PCR) NEGATIVE (NEGATIVE) 04/28/23 04/28/23 04/28/23 Range/Units 20:07 20:54 21:08 WBC (4.0-10.5) x10^3/uL RBC (4.1-5.4) x10^6/uL Hgb (12.0-16.0) g/dL Hct (35-47) % MCV (78-100) fL MCH (26-32) pg MCHC (32-36) g/dL RDW (11.5-14.0) % Plt Count (150-450) x10^3/uL MPV (7.5-11.0) fL Gran % (36.0-66.0) % Immature Gran % (Auto) (0.00-0.4) % Nucleat RBC Rel Count (0.00-0.1) % Eos # (Auto) (0-0.5) x10^3/uL Immature Gran # (Auto) (0.00-0.03) x10^3u/L Absolute Lymphs (auto) (1.0-4.6) x10^3/uL Absolute Monos (auto) (0.0-1.3) x10^3/uL Absolute Nucleated RBC (0.00-0.01) x10^3u/L Lymphocytes % (24.0-44.0) % Monocytes % (0.0-12.0) % Eosinophils % (0.00-5.0) % Basophils % (0.0-0.4) % Absolute Granulocytes (1.4-6.9) x10^3/uL Basophils # (0-0.4) x10^3/uL Sodium (137-145) mmol/L Potassium (3.5-5.1) mmol/L Chloride (98-107) mmol/L Carbon Dioxide (22-30) mmol/L Anion Gap (5-15) MEQ/L BUN (7-17) mg/dL Creatinine (0.52-1.04) mg/dL Estimated GFR ML/MIN Glucose (74-106) mg/dL Lactic Acid 1.3 (0.4-2.0) Calcium (8.4-10.2) mg/dL Magnesium Total Bilirubin (0.2-1.3) mg/dL AST (14-36) U/L ALT (0-35) U/L Alkaline Phosphatase (38-126) U/L Serum Total Protein (6.3-8.2) g/dL Albumin (3.5-5.0) g/dL TSH 3rd Generation (0.47-4.68) mIU/L Urine Color Dark Yellow A (Yellow) Urine Appearance Clear (Clear) Urine pH 5.5 (4.6-8.0) Ur Specific [place] 1.020 (1.005-1.030) Urine Protein 30 (Negative) Urine Glucose (UA) Negative (Negative) mg/dL Urine Ketones 80 A (Negative) Urine Blood Trace (Negative) Urine Nitrite Negative (Negative) Urine Bilirubin Moderate A (Negative) Urine Urobilinogen 1.0 A (0.2) mg/dL Ur Leukocyte Esterase Small A (Negative) U Hyaline Cast (Auto) 3-5 A (0-2) /LPF Urine Microscopic RBC 6-10 A (0-5) /HPF Urine Microscopic WBC 21-50 A (0-5) /HPF Ur Epithelial Cells Few (None Seen) /HPF Urine Bacteria None Seen (None Seen) /HPF Urine Culture Reflexed YES (NO) Ur Random Creatinine 245.3 MG/DL Urine Sodium 21 L (30-90) mmol/L Influenza Type A Ag (NEGATIVE) Influenza Type B Ag (NEGATIVE) RSV (PCR) (NEGATIVE) SARS-CoV-2 (PCR) (NEGATIVE) 04/29/23 04/29/23 Range/Units 05:26 07:35 WBC (4.0-10.5) x10^3/uL RBC (4.1-5.4) x10^6/uL Hgb (12.0-16.0) g/dL Hct (35-47) % MCV (78-100) fL MCH (26-32) pg MCHC (32-36) g/dL RDW (11.5-14.0) % Plt Count (150-450) x10^3/uL MPV (7.5-11.0) fL Gran % (36.0-66.0) % Immature Gran % (Auto) (0.00-0.4) % Nucleat RBC Rel Count (0.00-0.1) % Eos # (Auto) (0-0.5) x10^3/uL Immature Gran # (Auto) (0.00-0.03) x10^3u/L Absolute Lymphs (auto) (1.0-4.6) x10^3/uL Absolute Monos (auto) (0.0-1.3) x10^3/uL Absolute Nucleated RBC (0.00-0.01) x10^3u/L Lymphocytes % (24.0-44.0) % Monocytes % (0.0-12.0) % Eosinophils % (0.00-5.0) % Basophils % (0.0-0.4) % Absolute Granulocytes (1.4-6.9) x10^3/uL Basophils # (0-0.4) x10^3/uL Sodium 126 L (137-145) mmol/L Potassium 2.9 L* (3.5-5.1) mmol/L Chloride 94 L (98-107) mmol/L Carbon Dioxide 27 (22-30) mmol/L Anion Gap 8.2 (5-15) MEQ/L BUN 10 (7-17) mg/dL Creatinine 0.57 (0.52-1.04) mg/dL Estimated GFR 91.2 ML/MIN Glucose 93 (74-106) mg/dL Lactic Acid (0.4-2.0) Calcium 7.9 L (8.4-10.2) mg/dL Magnesium Cancelled Total Bilirubin 1.00 (0.2-1.3) mg/dL AST 41 H (14-36) U/L ALT 24 (0-35) U/L Alkaline Phosphatase 95 (38-126) U/L Serum Total Protein 5.6 L (6.3-8.2) g/dL Albumin 2.9 L (3.5-5.0) g/dL TSH 3rd Generation 0.390 L (0.47-4.68) mIU/L Urine Color (Yellow) Urine Appearance (Clear) Urine pH (4.6-8.0) Ur Specific [place] (1.005-1.030) Urine Protein (Negative) Urine Glucose (UA) (Negative) mg/dL Urine Ketones (Negative) Urine Blood (Negative) Urine Nitrite (Negative) Urine Bilirubin (Negative) Urine Urobilinogen (0.2) mg/dL Ur Leukocyte Esterase (Negative) U Hyaline Cast (Auto) (0-2) /LPF Urine Microscopic RBC (0-5) /HPF Urine Microscopic WBC (0-5) /HPF Ur Epithelial Cells (None Seen) /HPF Urine Bacteria (None Seen) /HPF Urine Culture Reflexed (NO) Ur Random Creatinine MG/DL Urine Sodium (30-90) mmol/L Influenza Type A Ag (NEGATIVE) Influenza Type B Ag (NEGATIVE) RSV (PCR) (NEGATIVE) SARS-CoV-2 (PCR) (NEGATIVE) Radiology Exams: Radiology Procedures Category Date Time Status CHEST 1 VIEW (PORTABLE) Stat Exams 04/28/23 19:38 Completed Assessment/Plan (1) UTI (urinary tract infection) Current Visit: Yes Status: Acute Assessment & Plan: - Rocephin - UC and BC x2 pending - IVF Code(s): N39.0 - URINARY TRACT INFECTION, SITE NOT SPECIFIED (2) Fever Current Visit: Yes Status: Acute Assessment & Plan: - 2:2 UTI - resolved - Tylenol PRN Code(s): R50.9 - FEVER, UNSPECIFIED (3) Essential (primary) hypertension Current Visit: Yes Status: Acute Assessment & Plan: - Hold thiazide due to low Na+ - Continue Micardis - stable Code(s): I10 - ESSENTIAL (PRIMARY) HYPERTENSION (4) Hyponatremia Current Visit: Yes Status: Acute Assessment & Plan: - improved 126- trend - Continue IVF - 2:2 HCTZ Code(s): E87.1 - HYPO-OSMOLALITY AND HYPONATREMIA (5) Hypothyroidism Current Visit: Yes Status: Acute Assessment & Plan: - Continue Levothyroxine - TSH 0.390- Will have pt f/u with PCP as acute illness may cause acute changes in levels. Code(s): E03.9 - HYPOTHYROIDISM, UNSPECIFIED (6) Hypokalemia Current Visit: Yes Status: Acute Assessment & Plan: - K+ 2.9 replaced VTE: xarelto Next of Kin: Dereck Franco - child- [phone] Code status: Full D/C plan: tomorrow Code(s): E87.6 - HYPOKALEMIA
--- NOTE | 2023-04-29 13:57 | PCM.HP ---
History of Present Illness - Chief Complaint Chief Complaint: Right hip pain History of Present Illness: is a 83 year old female. - Review of Systems Constitutional: Other (No chest pain shortness of breath fevers or chills.) Medications & Allergies Home Medications: Home Medication List Cetirizine HCl [Zyrtec] 10 mg PO DAILY 02/25/22 [History Confirmed 04/29/23] Lamotrigine 100 mg [lamICTAL 100MG TABLET] 150 mg PO BID 02/25/22 [History Confirmed 04/29/23] Levothyroxine Sodium 100 Mcg [Synthroid 100 Mcg] 100 mcg PO DAILY 02/25/22 [History Confirmed 04/29/23] Montelukast Sodium 10 mg [Singulair 10 MG] 10 mg PO DAILY 02/25/22 [History Confirmed 04/29/23] Telmisartan 80 mg [Micardis 80 MG Tablet] 80 mg PO DAILY 02/25/22 [History Confirmed 04/29/23] Fluticasone Propionate [Flonase NASAL] 16 gm NS DAILY 04/28/23 [History Confirmed 04/29/23] Hydrochlorothiazide 25 mg [hydroDIURIL 25 MG] 25 mg PO DAILY 04/28/23 [History Confirmed 04/29/23] Magnesium Oxide [Magnesium] 400 mg PO DAILY 04/28/23 [History Confirmed 04/29/23] Methylcellulose [Citrucel] 500 mg PO UD 04/28/23 [History Confirmed 04/29/23] Potassium Gluconate [Potassium] 99 mg PO DAILY 04/28/23 [History Confirmed 04/29/23] Rivaroxaban [Xarelto] 20 mg PO DAILY 04/28/23 [History Confirmed 04/29/23] dilTIAZem HCL [Diltiazem 24Hr ER] 180 mg PO DAILY 04/28/23 [History Confirmed 04/29/23] Allergies/Adverse Reactions: Allergies Allergy/AdvReac Type Severity Reaction Status Date / Time ciprofloxacin Allergy Intermediate Swelling Verified 04/28/23 19:48 of Eyelids Sulfa (Sulfonamide Allergy Mild Rash Verified 04/28/23 19:48 Antibiotics) diphenhydramine AdvReac Mild Verified 04/28/23 19:48 [From Benadryl] - Past Medical History Past Medical History: Yes Neurological History: Migraines, Seizures ENT History: No Pertinent History Cardiac History: Arrhythmia, Coronary Artery Disease, High Cholesterol, Hypertension, Other Respiratory History: No Pertinent History, Bronchitis, Sleep Apnea Endocrine Medical History: No Pertinent History, Hypothyroidism Musculoskelatal History: Osteoarthritis GI Medical History: No Pertinent History, Gallbladder Disease History: No Pertinent History Pyscho-Social History: No Pertinent History Reproductive Disorders: No Pertinent History Comment: 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 Encephalitis - Female History Are you now?: No - Past Surgical History Past Surgical History: Yes Neuro Surgical History: No Pertinent History Cardiac History: Cardiac Catheterization, Pacemaker Respiratory Surgery: No Pertinent History GI Surgical History: Appendectomy, Cholecystectomy Genitourinary Surgical Hx: No Pertinent History Musculskeletal Surgical Hx: Joint Replacement Female Surgical History: Hysterectomy Other Surgical History: Left Knee replacement, Right Wrist has screws from fracture - Social History Smoking Status: Never smoker Exposure to second hand smoke: No Alcohol: None Drug Use: none - Physical Exam Vital Signs: Vital Signs - 24 hr Temp Pulse Resp BP BP Pulse Ox 04/29/23 11:26 97.5 F 81 16 153/66 95 04/29/23 08:41 92 L 04/29/23 08:00 16 04/29/23 07:16 97.1 F 75 16 135/73 95 04/29/23 07:13 95 04/29/23 04:00 97.5 F 77 18 124/57 90 L 04/29/23 01:03 97.0 F 68 20 158/70 93 L 04/29/23 00:00 143/75 04/28/23 23:36 95 04/28/23 23:31 68 20 153/71 92 L 04/28/23 23:00 79 18 144/76 94 L 04/28/23 22:30 70 20 140/73 95 04/28/23 22:00 70 23 117/79 94 L 04/28/23 21:30 80 17 136/78 95 04/28/23 21:00 79 18 123/89 92 L 04/28/23 20:30 81 26 H 125/81 91 L 04/28/23 20:26 95 04/28/23 20:24 83 16 128/72 96 04/28/23 19:31 99.4 F 87 18 127/79 92 L Additional Findings: 04/29/23 13:53 Right hip pain with motion. Heart regular rate rhythm Abdomen soft nontender positive bowel sounds Lungs clear bilaterally Results - Labs Lab/Micro Results: Lab Results-Last 24 Hours 04/28/23 04/28/23 04/28/23 Range/Units 19:50 19:50 20:00 WBC 10.1 (4.0-10.5) x10^3/uL RBC 4.32 (4.1-5.4) x10^6/uL Hgb 13.4 (12.0-16.0) g/dL Hct 39.3 (35-47) % MCV 91.0 (78-100) fL MCH 31.0 (26-32) pg MCHC 34.1 (32-36) g/dL RDW 12.4 (11.5-14.0) % Plt Count 249 (150-450) x10^3/uL MPV 9.7 (7.5-11.0) fL Gran % 77.8 H (36.0-66.0) % Immature Gran % (Auto) 1.1 H (0.00-0.4) % Nucleat RBC Rel Count 0.0 (0.00-0.1) % Eos # (Auto) 0 (0-0.5) x10^3/uL Immature Gran # (Auto) 0.11 H (0.00-0.03) x10^3u/L Absolute Lymphs (auto) 1.00 (1.0-4.6) x10^3/uL Absolute Monos (auto) 1.10 (0.0-1.3) x10^3/uL Absolute Nucleated RBC 0.00 (0.00-0.01) x10^3u/L Lymphocytes % 9.9 L (24.0-44.0) % Monocytes % 10.9 (0.0-12.0) % Eosinophils % 0.0 (0.00-5.0) % Basophils % 0.3 (0.0-0.4) % Absolute Granulocytes 7.84 H (1.4-6.9) x10^3/uL Basophils # 0.03 (0-0.4) x10^3/uL Sodium 124 L (137-145) mmol/L Potassium 3.6 (3.5-5.1) mmol/L Chloride 86 L (98-107) mmol/L Carbon Dioxide 30 (22-30) mmol/L Anion Gap 11.6 (5-15) MEQ/L BUN 12 (7-17) mg/dL Creatinine 0.79 (0.52-1.04) mg/dL Estimated GFR 75.1 ML/MIN Glucose 115 H (74-106) mg/dL Lactic Acid (0.4-2.0) Calcium 8.6 (8.4-10.2) mg/dL Magnesium (1.6-2.3) mg/dL Total Bilirubin 1.60 H (0.2-1.3) mg/dL AST 37 H (14-36) U/L ALT 23 (0-35) U/L Alkaline Phosphatase 112 (38-126) U/L Serum Total Protein 6.5 (6.3-8.2) g/dL Albumin 3.7 (3.5-5.0) g/dL TSH 3rd Generation (0.47-4.68) mIU/L Urine Color (Yellow) Urine Appearance (Clear) Urine pH (4.6-8.0) Ur Specific [place] (1.005-1.030) Urine Protein (Negative) Urine Glucose (UA) (Negative) mg/dL Urine Ketones (Negative) Urine Blood (Negative) Urine Nitrite (Negative) Urine Bilirubin (Negative) Urine Urobilinogen (0.2) mg/dL Ur Leukocyte Esterase (Negative) U Hyaline Cast (Auto) (0-2) /LPF Urine Microscopic RBC (0-5) /HPF Urine Microscopic WBC (0-5) /HPF Ur Epithelial Cells (None Seen) /HPF Urine Bacteria (None Seen) /HPF Urine Culture Reflexed (NO) Ur Random Creatinine MG/DL Urine Sodium (30-90) mmol/L Influenza Type A Ag NEGATIVE (NEGATIVE) Influenza Type B Ag NEGATIVE (NEGATIVE) RSV (PCR) NEGATIVE (NEGATIVE) SARS-CoV-2 (PCR) NEGATIVE (NEGATIVE) 04/28/23 04/28/23 04/28/23 Range/Units 20:07 20:54 21:08 WBC (4.0-10.5) x10^3/uL RBC (4.1-5.4) x10^6/uL Hgb (12.0-16.0) g/dL Hct (35-47) % MCV (78-100) fL MCH (26-32) pg MCHC (32-36) g/dL RDW (11.5-14.0) % Plt Count (150-450) x10^3/uL MPV (7.5-11.0) fL Gran % (36.0-66.0) % Immature Gran % (Auto) (0.00-0.4) % Nucleat RBC Rel Count (0.00-0.1) % Eos # (Auto) (0-0.5) x10^3/uL Immature Gran # (Auto) (0.00-0.03) x10^3u/L Absolute Lymphs (auto) (1.0-4.6) x10^3/uL Absolute Monos (auto) (0.0-1.3) x10^3/uL Absolute Nucleated RBC (0.00-0.01) x10^3u/L Lymphocytes % (24.0-44.0) % Monocytes % (0.0-12.0) % Eosinophils % (0.00-5.0) % Basophils % (0.0-0.4) % Absolute Granulocytes (1.4-6.9) x10^3/uL Basophils # (0-0.4) x10^3/uL Sodium (137-145) mmol/L Potassium (3.5-5.1) mmol/L Chloride (98-107) mmol/L Carbon Dioxide (22-30) mmol/L Anion Gap (5-15) MEQ/L BUN (7-17) mg/dL Creatinine (0.52-1.04) mg/dL Estimated GFR ML/MIN Glucose (74-106) mg/dL Lactic Acid 1.3 (0.4-2.0) Calcium (8.4-10.2) mg/dL Magnesium (1.6-2.3) mg/dL Total Bilirubin (0.2-1.3) mg/dL AST (14-36) U/L ALT (0-35) U/L Alkaline Phosphatase (38-126) U/L Serum Total Protein (6.3-8.2) g/dL Albumin (3.5-5.0) g/dL TSH 3rd Generation (0.47-4.68) mIU/L Urine Color Dark Yellow A (Yellow) Urine Appearance Clear (Clear) Urine pH 5.5 (4.6-8.0) Ur Specific [place] 1.020 (1.005-1.030) Urine Protein 30 (Negative) Urine Glucose (UA) Negative (Negative) mg/dL Urine Ketones 80 A (Negative) Urine Blood Trace (Negative) Urine Nitrite Negative (Negative) Urine Bilirubin Moderate A (Negative) Urine Urobilinogen 1.0 A (0.2) mg/dL Ur Leukocyte Esterase Small A (Negative) U Hyaline Cast (Auto) 3-5 A (0-2) /LPF Urine Microscopic RBC 6-10 A (0-5) /HPF Urine Microscopic WBC 21-50 A (0-5) /HPF Ur Epithelial Cells Few (None Seen) /HPF Urine Bacteria None Seen (None Seen) /HPF Urine Culture Reflexed YES (NO) Ur Random Creatinine 245.3 MG/DL Urine Sodium 21 L (30-90) mmol/L Influenza Type A Ag (NEGATIVE) Influenza Type B Ag (NEGATIVE) RSV (PCR) (NEGATIVE) SARS-CoV-2 (PCR) (NEGATIVE) 04/29/23 04/29/23 Range/Units 05:26 07:35 WBC (4.0-10.5) x10^3/uL RBC (4.1-5.4) x10^6/uL Hgb (12.0-16.0) g/dL Hct (35-47) % MCV (78-100) fL MCH (26-32) pg MCHC (32-36) g/dL RDW (11.5-14.0) % Plt Count (150-450) x10^3/uL MPV (7.5-11.0) fL Gran % (36.0-66.0) % Immature Gran % (Auto) (0.00-0.4) % Nucleat RBC Rel Count (0.00-0.1) % Eos # (Auto) (0-0.5) x10^3/uL Immature Gran # (Auto) (0.00-0.03) x10^3u/L Absolute Lymphs (auto) (1.0-4.6) x10^3/uL Absolute Monos (auto) (0.0-1.3) x10^3/uL Absolute Nucleated RBC (0.00-0.01) x10^3u/L Lymphocytes % (24.0-44.0) % Monocytes % (0.0-12.0) % Eosinophils % (0.00-5.0) % Basophils % (0.0-0.4) % Absolute Granulocytes (1.4-6.9) x10^3/uL Basophils # (0-0.4) x10^3/uL Sodium 126 L (137-145) mmol/L Potassium 2.9 L* (3.5-5.1) mmol/L Chloride 94 L (98-107) mmol/L Carbon Dioxide 27 (22-30) mmol/L Anion Gap 8.2 (5-15) MEQ/L BUN 10 (7-17) mg/dL Creatinine 0.57 (0.52-1.04) mg/dL Estimated GFR 91.2 ML/MIN Glucose 93 (74-106) mg/dL Lactic Acid (0.4-2.0) Calcium 7.9 L (8.4-10.2) mg/dL Magnesium 2.0 (1.6-2.3) mg/dL Total Bilirubin 1.00 (0.2-1.3) mg/dL AST 41 H (14-36) U/L ALT 24 (0-35) U/L Alkaline Phosphatase 95 (38-126) U/L Serum Total Protein 5.6 L (6.3-8.2) g/dL Albumin 2.9 L (3.5-5.0) g/dL TSH 3rd Generation 0.390 L (0.47-4.68) mIU/L Urine Color (Yellow) Urine Appearance (Clear) Urine pH (4.6-8.0) Ur Specific [place] (1.005-1.030) Urine Protein (Negative) Urine Glucose (UA) (Negative) mg/dL Urine Ketones (Negative) Urine Blood (Negative) Urine Nitrite (Negative) Urine Bilirubin (Negative) Urine Urobilinogen (0.2) mg/dL Ur Leukocyte Esterase (Negative) U Hyaline Cast (Auto) (0-2) /LPF Urine Microscopic RBC (0-5) /HPF Urine Microscopic WBC (0-5) /HPF Ur Epithelial Cells (None Seen) /HPF Urine Bacteria (None Seen) /HPF Urine Culture Reflexed (NO) Ur Random Creatinine MG/DL Urine Sodium (30-90) mmol/L Influenza Type A Ag (NEGATIVE) Influenza Type B Ag (NEGATIVE) RSV (PCR) (NEGATIVE) SARS-CoV-2 (PCR) (NEGATIVE) Microbiology 04/28/23 20:00 Blood Culture Gram Stain - Final Blood 04/28/23 19:50 Blood Culture Gram Stain - Final Blood - Radiology Impressions Radiology Exams & Impressions: Radiology Procedures Category Date Time Status CHEST 1 VIEW (PORTABLE) Stat Exams 04/28/23 19:38 Completed - Other Procedures and Tests Respiratory Therapy 04/29/23 05:57 Oxygen Nasal Cannula 2 lpm Assessment/Plan (1) Right hip fracture Current Visit: Yes Status: Acute (2) Nondisplaced right Coreas 3 Femoral nec Current Visit: Yes Status: Acute Assessment & Plan: Weight bear as tolerated
[2023-04-29] MEDS ORDERED: VANCOMYCIN 1 GRAM/200 ML BAG 1 GM/200 ML PIGGYBACK IV SCH ×2 (14:15→22:00)
[2023-04-30 04:58] LABS: Hematocrit 35.2 % (35-47); Hemoglobin 11.9 g/dL (12.0-16.0); Mean Cell Volume 91.7 fL (78-100); Mean Corpuscular Hgb Concent. 33.8 g/dL (32-36); Mean Platelet Volume 10.3 fL (7.5-11.0); Platelet Count 205 x10^3/uL (150-450); Red Blood Count 3.84 x10^6/uL (4.1-5.4); Red Cell Distribution Width 12.8 % (11.5-14.0); White Blood Count 8.3 x10^3/uL (4.0-10.5)
[2023-04-30 05:49] LABS: ALBUMIN 2.9 g/dL (3.5-5.0); ANION GAP 7.9 MEQ/L (5-15); BILIRUBIN,TOTAL 0.8 mg/dL (0.2-1.3); Calcium 8.1 mg/dL (8.4-10.2); Creatinine 1 0.48 mg/dL (0.52-1.04); EST GLOMERULAR FILTRATION RATE 95.1 ML/MIN; Potassium 3.4 mmol/L (3.5-5.1); Total Protein 5.6 g/dL (6.3-8.2)
[2023-04-30] MEDS ORDERED: METHYLCELLULOSE 500 MG PO PRN (07:45)
[2023-04-30] MEDS: SYNTHROID 100 MCG PO SCH (07:48)
[2023-04-30] MEDS ORDERED: Dextrose 5%-NS IV Solution 1000 ML 1,000 ML IV SCH (08:00)
[2023-04-30] MEDS ORDERED: MEDICATION INTERVENTION MC SCH ×2 (08:00→08:15)
[2023-04-30] MEDS: XARELTO 10 MG TABLET PO SCH (08:34)
[2023-04-30] MEDS: Micardis 80 MG Tablet PO SCH (08:37)
[2023-04-30] MEDS: Cardizem CD PO SCH (08:38)
[2023-04-30] MEDS ORDERED: lamICTAL 100MG TABLET PO SCH (10:00)
[2023-04-30] MEDS ORDERED: NON-FORMULARY ITEM (Magnesium Oxide [Magnesium] 400 MG Tablet) PO SCH (10:00)
[2023-04-30] MEDS ORDERED: NON-FORMULARY ITEM (Cetirizine Hcl [Zyrtec] 10 MG Capsule) PO SCH (10:00)
[2023-04-30] MEDS ORDERED: MAG-OX 400 PO SCH (10:00)
[2023-04-30] MEDS ORDERED: CLARITIN 10 MG PO SCH (10:00)
[2023-04-30] MEDS ORDERED: Flonase NASAL NS SCH (10:00)
[2023-04-30] MEDS ORDERED: NON-FORMULARY ITEM (Potassium Gluconate [Potassium] 99 MG Tablet) PO SCH (10:00)
[2023-04-30] MEDS ORDERED: Singulair 10 MG PO SCH (10:00)
[2023-04-30] MEDS ORDERED: hydroDIURIL 25 MG PO SCH (10:00)
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
[2023-04-30] MEDS ORDERED: Klor Con PO ONE (10:34)
[2023-04-30 12:38] LABS: ALBUMIN 3.2 g/dL (3.5-5.0); ANION GAP 8.5 MEQ/L (5-15); BILIRUBIN,TOTAL 0.9 mg/dL (0.2-1.3); Calcium 8.3 mg/dL (8.4-10.2); Creatinine 1 0.51 mg/dL (0.52-1.04); EST GLOMERULAR FILTRATION RATE 93.7 ML/MIN; Potassium 3.7 mmol/L (3.5-5.1)
[2023-04-30 13:08] VITALS: BP 126/57; PULSE 65; RESP 29; TEMP 96.7; O2SAT 97
[2023-04-30] MEDS ORDERED: VANCOMYCIN 1 GRAM/200 ML BAG 1 GM/200 ML PIGGYBACK IV SCH (22:00)
[2023-05-01] MEDS ORDERED: TROUGH DRUG LEVELS IJ ONE (21:30)
== END 2023-04-30 14:10 | disposition home or self-care (01) ==
LOC: ED 19:04 → MED SURG 04-29 00:37
PROVIDERS: ADMIT Internal Medicine Nephrology; ATTEND Internal Medicine Nephrology
DX: N39.0 Urinary tract infection, site not specified (principal); R50.9 Fever, unspecified; I10 Essential (primary) hypertension; E87.1 Hypo-osmolality and hyponatremia; E03.9 Hypothyroidism, unspecified; E87.6 Hypokalemia; E78.5 Hyperlipidemia, unspecified; I25.10 Atherosclerotic heart disease of native coronary artery without angina pectoris; Z79.899 Other long term (current) drug therapy; Z20.828 Contact with and (suspected) exposure to other viral communicable diseases
CPT/HCPCS: 0241U; 36000; 36415; 71045; 80053; 81001; 82570; 83605; 83735; 83935; 84132; 84300; 84443; 85025; 85027; 87040; 87077; 87086; 87186; 93005; 93041; 93268; 94760; 94762; 96365; 97161; 99284; G0378; Q3014; J0696; A9270-GY; J3370

== ENCOUNTER 2024-03-04 16:42 | Emergency (ER) | payer MEDICARE, OTHER ==
--- NOTE | 2024-03-04 16:57 | ERPHSYRPT ---
- History of Present Illness Time Seen by Provider: 03/04/24 16:50 Source: patient Exam Limitations: no limitations Physician History: This is an obese 84-year-old white female patient of Dr. Benitez who arrives by private vehicle. Patient has had shortness of breath worsening over the last week with associated right lower leg swelling and tenderness. Today, patient had outpatient labs drawn at 2:39 PM at our facility. Patient was notified of elevated D-dimer level and patient arrives to our emergency department approximately 1650. Patient complains of some shortness of breath but no chest pain. Her room air oxygen saturation levels are running 93 to 94%. I reviewed these outpatient labs. I added a troponin level since that was not drawn earlier. Patient has a history of atrial fibrillation on Xarelto, COPD, seasonal allergies and hypothyroidism. Timing/Duration: week(s) (Symptoms for approximately 1 week) Severity: mild (To moderate) Modifying Factors: Improves With: other (Exertion was worsening her shortness of breath) Associated Symptoms: shortness of breath, No chest pain Allergies/Adverse Reactions: ciprofloxacin Allergy (Intermediate, Verified 03/04/24 17:06) Swelling of Eyelids Sulfa (Sulfonamide Antibiotics) Allergy (Mild, Verified 03/04/24 17:06) Rash diphenhydramine [From Benadryl] Adverse Reaction (Mild, Verified 03/04/24 17:06) Home Medications: Cetirizine HCl [Zyrtec] 10 mg PO DAILY 02/25/22 [History] Lamotrigine 100 mg [lamICTAL 100MG TABLET] 150 mg PO BID 02/25/22 [History] Levothyroxine Sodium 100 Mcg [Synthroid 100 Mcg] 100 mcg PO DAILY 02/25/22 [History] Montelukast Sodium 10 mg [Singulair 10 MG] 10 mg PO DAILY 02/25/22 [History] Telmisartan 80 mg [Micardis 80 MG Tablet] 80 mg PO DAILY 02/25/22 [History] Fluticasone Propionate [Flonase NASAL] 16 gm NS DAILY 04/28/23 [History] Magnesium Oxide [Magnesium] 400 mg PO DAILY 04/28/23 [History] Potassium Gluconate [Potassium] 99 mg PO DAILY 04/28/23 [History] Rivaroxaban [Xarelto] 20 mg PO DAILY 04/28/23 [History] Meclizine HCl [Antivert] 400 mg PO DAILY PRN 05/12/23 [History] Isosorbide Mononitrate 30 mg [Imdur 30 MG] 30 mg PO DAILY 05/15/23 [History] Furosemide [Lasix] 20 mg PO DAILY 03/04/24 [History] Hx Tetanus, Diphtheria Vaccination/Date Given: Yes (Unknown) Hx Influenza Vaccination/Date Given: Yes Hx Pneumococcal Vaccination/Date Given: Yes (unknown) Travel Risk - International Travel Have you traveled outside of the country in past 3 weeks: No - Emerging Infectious Disease Are you exhibiting symptoms associated with any current EIDs: Yes Symptoms: Shortness of Breath - Review of Systems Constitutional: No Symptoms Eyes: No Symptoms Ears, Nose, & Throat: No Symptoms Respiratory: Dyspnea, Dyspnea on Exertion ([place]), No Cough Cardiac: No Chest Pain Abdominal/Gastrointestinal: No Symptoms Genitourinary Symptoms: No Symptoms Musculoskeletal: No Symptoms Skin: No Symptoms Neurological: No Symptoms Psychological: No Symptoms Endocrine: No Symptoms Hematologic/Lymphatic: No Symptoms Immunological/Allergic: No Symptoms All Other Systems: Reviewed and Negative - Past Medical History Pertinent Past Medical History: Yes Neurological History: Migraines, Seizures ENT History: No Pertinent History Cardiac History: Arrhythmia, Coronary Artery Disease, High Cholesterol, Hypertension, Other Respiratory History: No Pertinent History, Bronchitis, Sleep Apnea Endocrine Medical History: No Pertinent History, Hypothyroidism Musculoskeletal History: Osteoarthritis GI Medical History: No Pertinent History, Gallbladder Disease History: No Pertinent History Psycho-Social History: No Pertinent History Female Reproductive Disorders: No Pertinent History Other Medical History: 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 Encephalitis - Past Surgical History Past Surgical History: Yes Neuro Surgical History: No Pertinent History Cardiac: Cardiac Catheterization, Pacemaker Respiratory: No Pertinent History Gastrointestinal: Appendectomy, Cholecystectomy Genitourinary: No Pertinent History Musculoskeletal: Joint Replacement Female Surgical History: Hysterectomy Other Surgical History: Left Knee replacement, Right Wrist has screws from fracture - Social History Smoking Status: Never smoker Exposure to second hand smoke: No Drug Use: none Patient Lives Alone: Yes - Social Determinants of Health Will the patient participate in the screening: Yes Do you worry about a steady place to live?: No In the past 12 months,have you had to go without utilities?: No Transportation Issues: No Has anyone in your support network made you feel unsafe?: No Have you or anyone in your house had to go without enough: No - Nursing Vital Signs Nursing Vital Signs: Initial Vital Signs Temperature 98.6 F 03/04/24 16:54 Pulse Rate 116 H 03/04/24 16:54 Respiratory Rate 29 H 03/04/24 16:54 Blood Pressure 131/89 03/04/24 16:54 O2 Sat by Pulse Oximetry 93 L 03/04/24 16:54 Pain Scale Pain Intensity 0 - Physical Exam General Appearance: no apparent distress, alert, anxiety, obese Eye Exam: PERRL/EOMI, eyes nml inspection Ears, Nose, Throat Exam: normal ENT inspection, moist mucous membranes Neck Exam: normal inspection, non-tender, supple, full range of motion Respiratory Exam: normal breath sounds, lungs clear, airway intact, No chest tenderness, No respiratory distress Cardiovascular Exam: tachycardia, irregular Gastrointestinal/Abdomen Exam: soft, normal bowel sounds, No tenderness Pelvic Exam: not done Rectal Exam: not done Back Exam: normal inspection, normal range of motion, No CVA tenderness, No vertebral tenderness Extremity Exam: normal range of motion, pelvis stable, swelling (Bilateral lymphedema with right side slightly larger than the left with increased, superficial ecchymosis) Neurologic Exam: alert, oriented x 3, cooperative, product architect II-XII nml as tested, nml cerebellar function, nml station & gait, sensation nml Skin Exam: ecchymosis (Lateral lower extremities right greater than left at the level of the ankle) Lymphatic Exam: No adenopathy SpO2 Interpretation: borderline oxygenation O2 Delivery: Room Air - Course Nursing assessment & vital signs reviewed: Yes EKG Interpreted by Me: RATE (98), A-fib, NORMAL AXIS, NORMAL INTERVALS, Right Bundle Branch Block, Other (Acute ischemic changes on today's twelve-lead EKG. QTc is 465) Ordered Tests: Active Orders 24 hr Category Date Time Status EKG-ER Only STAT Care 03/04/24 17:09 Active IV Insertion STAT Care 03/04/24 17:09 Active Pulse Oximetry (ED) STAT Care 03/04/24 17:09 Active CHEST WITH CONTRAST [CT] Stat Exams 03/04/24 17:08 Taken VENOUS UNILAT/LIMITED EXTREMIT [US] Stat Exams 03/04/24 17:02 Taken Lactic Acid Stat Lab 03/04/24 17:27 Completed Lactic Acid Stat Lab 03/04/24 19:29 Received MAGNESIUM Stat Lab 03/04/24 17:05 Completed TROPONIN Q4H Lab 03/04/24 17:05 Completed TROPONIN Q4H Lab 03/04/24 21:15 Ordered TROPONIN Q4H Lab 03/05/24 01:15 Ordered Medication Summary Generic Name Dose Route Start Last Admin Trade Name Freq PRN Reason Stop Dose Admin Sodium Chloride 500 mls @ 50 mls/hr 03/04/24 17:15 03/04/24 17:22 Sodium Chloride 0.9% 500 Ml IV 04/03/24 17:14 50 mls/hr .Q10H KATHERYN Administration Discontinued Medications Generic Name Dose Route Start Last Admin Trade Name Freq PRN Reason Stop Dose Admin Furosemide 40 mg 03/04/24 20:11 03/04/24 20:28 Furosemide 40 Mg/4 Ml Vial IV 03/04/24 20:12 40 mg STAT ONE Administration Furosemide Confirm 03/04/24 20:26 Furosemide 40 Mg/4 Ml Vial Administered 03/04/24 20:27 Dose 40 mg .ROUTE .STK-MED ONE Lab/Rad Data: Laboratory Results 03/04/24 03/04/24 03/04/24 Range/Units 17:27 17:20 17:05 Lactic Acid 2.1 H (0.4-2.0) Magnesium (1.6-2.3) mg/dL Troponin I < 0.012 (0.000-0.033) ng/mL Influenza Type A Ag NEGATIVE (NEGATIVE) Influenza Type B Ag NEGATIVE (NEGATIVE) RSV (PCR) NEGATIVE (NEGATIVE) SARS-CoV-2 (PCR) NEGATIVE (NEGATIVE) 03/04/24 Range/Units 17:05 Lactic Acid (0.4-2.0) Magnesium 2.0 (1.6-2.3) mg/dL Troponin I (0.000-0.033) ng/mL Influenza Type A Ag (NEGATIVE) Influenza Type B Ag (NEGATIVE) RSV (PCR) (NEGATIVE) SARS-CoV-2 (PCR) (NEGATIVE) - Progress Progress: improved, re-examined Progress Note: 03/04/24 17:36 My medical decision making and the assignment of moderate to high complexity of this patient's medical issue today is based on review of the patient's past medical history, review of the patient's outpatient laboratory data results, review of the patient's medication list, reviewed patient drug allergy list, history present illness and physical findings on examination. The workup today includes placement of a intravenous line, obtain blood cultures, troponin level, twelve-lead EKG, CTA of the chest to evaluate for pulmonary embolus, right lower extremity venous Doppler to evaluate for DVT. Differential diagnosis includes but is not limited to pneumonia, viral illness, mononucleosis, pulmonary embolus, myocardial infarction, CHF exacerbation, electrolyte abnormalities, arrhythmias 03/04/24 20:11 Interpreted the patient's laboratory data results. Based on the laboratory data results, the patient does have mild CHF exacerbation. There are no other acute, emergent medical issues present. Venous Doppler of the right lower extremity was interpreted by the product/device technologist and she reported to me that the results show no DVT. The study is negative for DVT. CT scan of the chest without contrast was interpreted by the radiologist and I reviewed the impression. The impression states compared to similar study dated 02/26/2022, this study is negative for pulmonary embolus. There is new cardiomegaly with small bilateral pleural effusions with fever CHF. 03/04/24 20:30 I reviewed the patient workup results with her and her son. In that discussion the patient actually admitted she is only taking 10 mg a day of her furosemide. Patient does prefer to be discharged to home and she will take her her Lasix 20 mg twice a day for 3 days then back to 20 mg a day thereafter. She understands that she needs to take her Lasix 20 mg a day as prescribed. Patient's respiratory rate is 18-19 respirations per minute, her room air oxygenation saturation levels are running between 93 and 95%. Her systolic blood pressure is in the 130 mmHg range and her heart rate is 80s to 90s beats per minute. Counseled pt/family regarding: lab results, diagnosis, rad results Medical Desision Making - Independent Historian Additional History obtained from: Family - External Record(s) Reviewed Records reviewed as a part of evaluation & management: Clinic - Diagnostic Testing Diagnostic test were ordered, analyzed, and reviewed by me: Yes Radiological Interpretation: Reviewed by me, Teleradiologist Report - Risk of complications Low Risk: Low risk of morbidity from additional dx testing or treatment - Departure Departure Disposition: Home Clinical Impression: Shortness of breath, Mild congestive heart failure Condition: Stable Critical Care Time: No Referrals: KEARA BENITEZ DO [Primary Care Provider] - Follow up/PCP as directed Instructions: Heart Failure Additional Instructions: Take all your medications as prescribed. Increase your furosemide to 20 mg orally twice a day for 3 days then return to 20 mg orally daily. Call your primary care provider on 03/07/2024 to make arrangements for follow-up appointment and to be seen in the next 3 to 4 days.
[2024-03-04 17:06] VITALS: TEMP 98.6
[2024-03-04] MEDS ORDERED: Sodium Chloride 0.9% 500 ML 500 ML IV ONE (17:22)
[2024-03-04] MEDS: Sodium Chloride 0.9% 500 ML 500 ML IV SCH (17:22)
[2024-03-04 18:22] LABS: INFLUENZA A NEGATIVE (NEGATIVE); INFLUENZA B NEGATIVE (NEGATIVE); RESPIRATORY SYNCTIAL VIRUS NEGATIVE (NEGATIVE); SARS-CoV-2 Xpert Express NEGATIVE (NEGATIVE)
[2024-03-04 19:25] VITALS: BP 134/97
[2024-03-04] MEDS ORDERED: Lasix 40 MG/4 ML ONE (20:26)
[2024-03-04] MEDS: Lasix 40 MG/4 ML IV ONE (20:28)
[2024-03-04 20:40] VITALS: PULSE 84; RESP 18; O2SAT 95
--- NOTE | 2024-03-05 08:04 | XRAY ---
Indication: Pain and swelling. Two-dimensional sonogram and color Doppler imaging major venous vessels right leg performed. Comparison: None No thrombus seen in the examined deep venous vessels right leg including greater saphenous vein. Veins demonstrate normal compressibility. Venous waveforms are normal with and without augmentation. Impression: Right leg negative for DVT. Comment: Preliminary report was given.
--- NOTE | 2024-03-05 08:15 | XRAY ---
Indication: Short of breath. Elevated d-dimer. Multiple contiguous axial images obtained of the chest using 80 cc Isovue 370 contrast and PE protocol. Comparison: February 26, 2022. Good opacification pulmonary arteries to include the lobar and segmental branches. No pulmonary embolus. Heart is now enlarged with new left dual-lead pacemaker. Aorta again minimally arteriosclerotic without aneurysm/dissection. Stable small right hilar calcified nodes. No pathologic mediastinal/hilar lymphadenopathy. Stable small hiatal hernia. Lungs demonstrates new moderate bilateral pleural effusions. Also scattered bilateral subsegmental atelectasis/scarring greatest in both lung bases. No suspicious pulmonary mass/nodule. Bony thorax intact again with osteopenia and mild/moderate degenerative changes throughout spine. Limited upper abdomen again demonstrates tiny hepatic/splenic calcified granulomas. Impression: 1. Negative pulmonary embolus. 2. New cardiomegaly with bilateral effusions favoring cardiac decompensation/CHF. 3. Again chronic findings including atelectasis/scarring, hiatal hernia, chronic bony findings, and old granulomatous disease.
== END 2024-03-04 20:50 | disposition home or self-care (01) ==
LOC: ED 16:42
DX: R06.02 Shortness of breath (principal); I50.9 Heart failure, unspecified; I48.91 Unspecified atrial fibrillation; R60.0 Localized edema; Z79.01 Long term (current) use of anticoagulants
CPT/HCPCS: 0241U; 36000; 36415; 71260; 83605; 83735; 84484; 93005; 93971; 94760; 96374; 99284; 99285; J1940